=== PATIENT | male | born 1940 | race Caucasian/White ===

== ENCOUNTER → 2018-02-24 10:40 | Outpatient (CLI) | payer MEDICARE, SELFPAY | PROVIDERS: Family Provider Internal Medicine; PCP Internal Medicine; Visit Provider Urology | DX: R97.20 Elevated prostate specific antigen [PSA] (principal) | CPT/HCPCS: 36415; 84153 ==

== ENCOUNTER → 2019-04-06 11:55 | Outpatient (CLI) | payer MEDICARE, SELFPAY ==
[2019-04-06 13:03] LABS: Prostate Specific Antigen 2.08 ng/mL (0.10-4.00)
== END ==
PROVIDERS: PCP Internal Medicine; Visit Provider Urology
DX: R97.20 Elevated prostate specific antigen [PSA] (principal); N40.1 Benign prostatic hyperplasia with lower urinary tract symptoms
CPT/HCPCS: 36415; 84153

== ENCOUNTER → 2020-01-13 09:27 | Outpatient (CLI) | payer MEDICARE, SELFPAY ==
[2020-01-13 11:34] LABS: Aspartate Aminotransferase 27 IU/L (17-59); BUN Creatinine Ratio 16.7 (6-22); Blood Urea Nitrogen 14 mg/dL (9-20); Calcium 9.4 mg/dL (8.4-10.2); Carbon Dioxide 28 mmol/L (22-32); Chloride 106 mmol/L (98-107); Cholesterol 202 mg/dL (140-199); Estimated Glomerular Filt Rate > 60.0 mL/min (>60); Glucose 110 mg/dL (80-110); HDL Cholesterol 64 mg/dL (40-60); HEMOLYSIS < 15 (0-50); LDL Cholesterol Calculated 128 mg/dL (<100); Potassium 4.1 mmol/L (3.4-5.1); Sodium 140 mmol/L (137-145); Triglycerides 49 mg/dL (35-150)
== END ==
PROVIDERS: PCP Internal Medicine; Referring Provider Internal Medicine; Visit Provider Internal Medicine
DX: E78.2 Mixed hyperlipidemia (principal)
CPT/HCPCS: 36415; 80048; 80061; 84450

== ENCOUNTER → 2020-05-21 10:52 | Outpatient (CLI) | payer MEDICARE, SELFPAY ==
--- NOTE | 2020-05-21 | DI.RAD.S_ITS ---
PROCEDURE: XR LUMBAR SPINE 2-3V INDICATIONS: LOW BACK PAIN TECHNIQUE: 3 views of the lumbar spine were acquired. COMPARISON: None. FINDINGS: Bones: 5 [id number] vertebrae are present. There is normal bony alignment. No vertebral body compression fractures. No suspicious bony lesions. Multilevel disc space narrowing and endplate osteophyte formation. Facet hypertrophy throughout the mid and lower lumbar spine. Mild grade 1 anterolisthesis of L3 on L4. Soft tissues: Overlying bowel gas pattern is normal. No suspicious soft tissue calcifications. IMPRESSION: Multilevel degenerative disc and facet disease. No acute fracture. No osseous lesion. If symptoms and/or clinical suspicion for pathology persist, further assessment with repeat, or advanced imaging (e.g., CT, MRI, or bone scan) may be helpful for further assessment. Dictated by: Nesha Coe M.D. on 05/21/2020 at 16:55 Approved by: Nesha Coe M.D. on 05/21/2020 at 16:56
== END ==
PROVIDERS: PCP Internal Medicine; Referring Provider Internal Medicine; Visit Provider Internal Medicine
DX: M54.5 Low back pain (principal); M51.36 Other intervertebral disc degeneration, lumbar region
CPT/HCPCS: 72100

== ENCOUNTER → 2020-10-18 16:44 | Outpatient (CLI) | payer MEDICARE, SELFPAY ==
[2020-10-18] MEDS: COVID-19 VACC, Ad26(JANSSEN)/PF 0.5 ML IM (16:51)
== END ==
PROVIDERS: PCP Internal Medicine; Visit Provider Internal Medicine
DX: Z23 Encounter for immunization (principal)
CPT/HCPCS: 0031A; 91303

== ENCOUNTER → 2021-01-15 18:53 | Outpatient (ROUT) | payer OTHER, SELFPAY ==
[2021-01-15 19:13] LABS: Add Manual Diff / Slide Review NO; Basophils Absolute Auto 0 /uL (0-100); Basophils Percent Auto 0.7 % (0-2); Eosinophils Absolute Auto 200 /uL (0-450); Eosinophils Percent Auto 2.4 % (2-4); Hematocrit 40.8 % (41-53); Hemoglobin 13.5 g/dL (13.5-17.5); Lymphocytes Absolute Auto 800 /uL (1100-4500); Lymphocytes Percent Auto 10.8 % (25-40); Mean Corpuscular Hemoglobin 32.3 PG (26-34); Mean Corpuscular Volume 97.8 fL (80-100); Monocytes Absolute Auto 600 /uL (0-900); Neutrophils Absolute Auto 5500 /uL (1500-7000); Neutrophils Percent Auto 77.1 % (50-75); Platelet Count 232 X10^3/uL (150-400); Red Blood Cell Count 4.18 X10^6/uL (4.5-5.9); Red Cell Distribution Width 13.5 % (11.6-14.8); White Blood Cell Count 7.1 X10^3/uL (4.5-11.0)
[2021-01-15 19:20] LABS: Alanine Aminotransferase 17 IU/L (<50); Albumin Globulin Ratio 1.3 (1.0-2.8); Alkaline Phosphatase 93 U/L (38-126); Aspartate Aminotransferase 26 IU/L (17-59); BUN Creatinine Ratio 12.2 (6-22); Bilirubin Total 0.9 mg/dL (0.2-1.3); Blood Urea Nitrogen 10 mg/dL (9-20); Calcium 9.5 mg/dL (8.4-10.2); Carbon Dioxide 29 mmol/L (22-32); Chloride 104 mmol/L (98-107); Cholesterol 194 mg/dL (140-199); Estimated Glomerular Filt Rate > 60.0 mL/min (>60); Glucose 87 mg/dL (80-110); HDL Cholesterol 75 mg/dL (40-60); LDL Cholesterol Calculated 105 mg/dL (<100); Potassium 4.3 mmol/L (3.4-5.1); Sodium 140 mmol/L (137-145); Triglycerides 68 mg/dL (35-150)
[2021-01-15 19:51] LABS: TSH w/ Reflex to FT4 1.75 uIU/mL (0.47-4.68)
[2021-01-15 20:03] LABS: HEMOLYSIS < 15 (0-50); Prostate Specific Antigen 2.07 ng/mL (0.10-4.00)
== END ==
PROVIDERS: PCP Internal Medicine; Visit Provider Internal Medicine
DX: N40.0 Benign prostatic hyperplasia without lower urinary tract symptoms (principal); F10.20 Alcohol dependence, uncomplicated; E78.2 Mixed hyperlipidemia
CPT/HCPCS: 80053; 80061; 84153; 84443; 85025

== ENCOUNTER 2021-06-09 11:07 | Emergency (ER) | payer OTHER, SELFPAY ==
[2021-06-09 11:16] VITALS: BP 160/75; PULSE 76; RESP 16; TEMP 36.4; O2SAT 98; BMI 26.5
[2021-06-09 11:17] VITALS: PULSE 81; O2SAT 97
--- NOTE | 2021-06-09 11:23 | ED_ITS ---
HPI - Weakness General Chief complaint: Weakness Stated complaint: Feeling crummy/chills/sweats Time Seen by Provider: 06/09/21 11:10 Source: patient Mode of arrival: Ambulatory Related Data Home Medications Medication Instructions Recorded Confirmed ascorbic acid (vitamin C) 500 mg 1,000 mg PO BID #0 12/01/16 tablet aspirin 81 mg tablet,delayed 81 mg PO QDAY #0 12/01/16 release baclofen 10 mg tablet 20 mg PO QDAY #0 12/01/16 cholecalciferol (vitamin D3) 50 1 tab PO QDAY #0 12/01/16 mcg (2,000 unit) tablet (Vitamin D3) citalopram 20 mg tablet 10 mg PO QDAY #0 12/01/16 cyanocobalamin (vitamin B-12) 500 500 mcg PO QDAY #0 12/01/16 mcg tablet (Vitamin B-12) doxazosin 8 mg tablet (Cardura) 8 mg PO QDAY #0 12/01/16 finasteride 5 mg tablet 5 mg PO QDAY #0 12/01/16 multivitamin (Multiple Vitamins) 1 tab PO QDAY #0 12/01/16 pravastatin 20 mg tablet 20 mg PO HS #0 12/01/16 Allergies Allergy/AdvReac Type Severity Reaction Status Date / Time No Known Drug Allergies Allergy Verified 06/09/21 11:35 Patient History Social History Smoking Status: Never smoker Smoking Status: Never smoker alcohol intake frequency: 3 or more drinks per day Alcohol type: beer Substance Use Type: does not use Exam Initial Vital Signs Initial Vital Signs: Vital Signs Temperature 97.6 F 06/09/21 11:16 Pulse Rate 76 06/09/21 11:16 Respiratory Rate 16 06/09/21 11:16 Blood Pressure 160/75 H 06/09/21 11:16 Pulse Oximetry 98 06/09/21 11:16 Course Orders Ordered: ED Orders 06/09/21 11:10 COVID19 -Nasal swab/Pre-Proc Stat 06/09/21 11:30 Blood Culture Stat 06/09/21 11:31 EKG-12 Lead Stat 06/09/21 11:40 NT-proBNP (BNP-Adult 18+) Stat Troponin & CK Cardiac Panel Stat 06/09/21 11:45 Complete Blood Count AUTO DIFF Stat Comprehensive Metabolic Panel Stat Ethanol (ETOH) Stat Lactate (Lactic Acid) Stat Lipase Stat Magnesium Stat 06/09/21 12:23 XR chest 2V Stat 06/09/21 12:24 CT head/brain wo con Stat Discontinued Medications Sodium Chloride (Normal Saline 0.9%) 1,000 mls @ 1,000 mls/hr IV BOLUS ONE Stop: 06/09/21 12:29 Last Infusion: 06/09/21 13:13 Dose: 0 mls/hr Documented by: Admin: 06/09/21 11:45 Dose: 1,000 mls/hr Documented by: ALAINA Vital Signs Vital signs: Vital Signs - 8 hr 06/09/21 11:16 06/09/21 11:17 06/09/21 11:30 Temperature 97.6 F Pulse Rate 76 81 70 Respiratory Rate 16 Blood Pressure 160/75 H Pulse Oximetry 98 97 97 06/09/21 12:00 Temperature Pulse Rate 66 Respiratory Rate Blood Pressure 150/67 H Pulse Oximetry 95 MDM - Weakness Lab Data Result diagrams: 06/09/21 11:45 06/09/21 11:45 Labs: Lab Results 06/09/21 06/09/21 06/09/21 Range/Units 11:10 11:40 11:45 WBC 6.1 (4.5-11.0) X10^3/uL RBC 4.46 L (4.5-5.9) X10^6/uL Hgb 14.5 (13.5-17.5) g/dL Hct 43.3 (41-53) % MCV 97.0 (80-100) fL MCH 32.6 (26-34) PG MCHC 33.6 (30-36) % RDW 13.3 (11.6-14.8) % Plt Count 257 (150-400) X10^3/uL Neut % (Auto) 77.6 H (50-75) % Lymph % (Auto) 12.0 L (25-40) % Morrison % (Auto) 8.2 (3-14) % Eos % (Auto) 1.7 L (2-4) % Baso % (Auto) 0.5 (0-2) % Neut # (Auto) 4700 (6129-6140) /uL Lymph # (Auto) 700 L (8433-2288) /uL Morrison # (Auto) 500 (0-900) /uL Eos # (Auto) 100 (0-450) /uL Baso # (Auto) 0 (0-100) /uL Sodium (137-145) mmol/L Potassium (3.4-5.1) mmol/L Chloride (98-107) mmol/L Carbon Dioxide (22-32) mmol/L BUN (9-20) mg/dL Creatinine (0.66-1.25) mg/dL Estimated GFR (>60) mL/min BUN/Creatinine Ratio (6-22) Glucose (80-110) mg/dL Lactate (0.7-2.1) mmol/L Calcium (8.4-10.2) mg/dL Magnesium (1.6-2.3) mg/dL Total Bilirubin (0.2-1.3) mg/dL AST (17-59) IU/L ALT (<50) IU/L Alkaline Phosphatase (38-126) U/L Total Creatine Kinase 51 L (55-170) U/L CK-MB (CK-2) TNP CK-MB (CK-2) Rel Index TNP Troponin I < 0.012 (0.01-0.034) ng/mL NT-Pro-B Natriuret Pep 115 (<450) pg/mL Total Protein (6.3-8.2) g/dL Albumin (3.5-5.0) g/dL Globulin (1.7-4.1) g/dL Albumin/Globulin Ratio (1.0-2.8) Lipase (23-300) U/L Ethyl Alcohol ( - 10) mg/dL SARS-CoV-2 (PCR) Negative (Negative) 06/09/21 06/09/21 Range/Units 11:45 11:45 WBC (4.5-11.0) X10^3/uL RBC (4.5-5.9) X10^6/uL Hgb (13.5-17.5) g/dL Hct (41-53) % MCV (80-100) fL MCH (26-34) PG MCHC (30-36) % RDW (11.6-14.8) % Plt Count (150-400) X10^3/uL Neut % (Auto) (50-75) % Lymph % (Auto) (25-40) % Morrison % (Auto) (3-14) % Eos % (Auto) (2-4) % Baso % (Auto) (0-2) % Neut # (Auto) (2447-2035) /uL Lymph # (Auto) (8427-6114) /uL Morrison # (Auto) (0-900) /uL Eos # (Auto) (0-450) /uL Baso # (Auto) (0-100) /uL Sodium 140 (137-145) mmol/L Potassium 4.2 (3.4-5.1) mmol/L Chloride 103 (98-107) mmol/L Carbon Dioxide 31 (22-32) mmol/L BUN 11 (9-20) mg/dL Creatinine 0.99 (0.66-1.25) mg/dL Estimated GFR > 60.0 (>60) mL/min BUN/Creatinine Ratio 11.1 (6-22) Glucose 119 H (80-110) mg/dL Lactate 1.2 (0.7-2.1) mmol/L Calcium 9.3 (8.4-10.2) mg/dL Magnesium 2.4 H (1.6-2.3) mg/dL Total Bilirubin 1.0 (0.2-1.3) mg/dL AST 26 (17-59) IU/L ALT 19 (<50) IU/L Alkaline Phosphatase 97 (38-126) U/L Total Creatine Kinase (55-170) U/L CK-MB (CK-2) CK-MB (CK-2) Rel Index Troponin I (0.01-0.034) ng/mL NT-Pro-B Natriuret Pep (<450) pg/mL Total Protein 7.9 (6.3-8.2) g/dL Albumin 4.6 (3.5-5.0) g/dL Globulin 3.3 (1.7-4.1) g/dL Albumin/Globulin Ratio 1.4 (1.0-2.8) Lipase 50 (23-300) U/L Ethyl Alcohol < 10 ( - 10) mg/dL SARS-CoV-2 (PCR) (Negative) Urine Dip Bedside Urine Glucose Negative Bedside Urine Bilirubin - Negative Bedside Urine Ketone - Negative Urine Specific Harrell 1.015 Bedside Urine Occult Blood - Negative Bedside Urine pH 6.0 Bedside Urine Protein - Negative Bedside Urine Urobilinogen - Negative Bedside Urine Nitrite - Negative Bedside Urine Leukocytes - Negative Esterase Discharge Plan Departure Patient Disposition: Home Clinical Impression: Dehydration Instructions: DI for Dehydration -- Adult Activity Restrictions/Additional Instructions: You were evaluated in the ED today for weakness. Your lab results, CT head, chest x-ray were normal. Your symptoms are likely due to dehydration. Please continue to stay hydrated by drinking lots of water. Please see your primary care provider to follow up on the sleep issues. Return to the ED if you experience chest pain, shortness of breath, fever, chills. Prescriptions: No Action aspirin 81 MG tablet,delayed release (DR/EC) 81 mg PO QDAY Qty: 0 RF: 0 citalopram 20 MG tablet 10 mg PO QDAY Qty: 0 RF: 0 baclofen 10 MG tablet 20 mg PO QDAY Qty: 0 RF: 0 multivitamin [Multiple Vitamins] 1 EACH tablet 1 tab PO QDAY Qty: 0 RF: 0 doxazosin [Cardura] 8 MG tablet 8 mg PO QDAY Qty: 0 RF: 0 pravastatin 20 MG tablet 20 mg PO HS Qty: 0 RF: 0 finasteride 5 MG tablet 5 mg PO QDAY Qty: 0 RF: 0 cyanocobalamin (vitamin B-12) [Vitamin B-12] 500 MCG tablet 500 mcg PO QDAY Qty: 0 RF: 0 ascorbic acid (vitamin C) 500 MG tablet 1,000 mg PO BID Qty: 0 RF: 0 cholecalciferol (vitamin D3) [Vitamin D3] 2,000 UNIT tablet 1 tab PO QDAY Qty: 0 RF: 0 Referrals: Kristopher Altman MD [Primary Care Provider] -
[2021-06-09 11:30] VITALS: PULSE 70; O2SAT 97
[2021-06-09] MEDS: SODIUM CHLORIDE 0.9% 1,000 ML 1000 ML IV (11:45)
[2021-06-09 11:48] LABS: Add Manual Diff / Slide Review NO; Basophils Absolute Auto 0 /uL (0-100); Basophils Percent Auto 0.5 % (0-2); Eosinophils Absolute Auto 100 /uL (0-450); Eosinophils Percent Auto 1.7 % (2-4); Hematocrit 43.3 % (41-53); Hemoglobin 14.5 g/dL (13.5-17.5); Lymphocytes Absolute Auto 700 /uL (1100-4500); Mean Corpuscular HGB Conc 33.6 % (30-36); Mean Corpuscular Hemoglobin 32.6 PG (26-34); Monocytes Absolute Auto 500 /uL (0-900); Monocytes Percent Auto 8.2 % (3-14); Neutrophils Absolute Auto 4700 /uL (1500-7000); Neutrophils Percent Auto 77.6 % (50-75); Platelet Count 257 X10^3/uL (150-400); Red Blood Cell Count 4.46 X10^6/uL (4.5-5.9); Red Cell Distribution Width 13.3 % (11.6-14.8); White Blood Cell Count 6.1 X10^3/uL (4.5-11.0)
[2021-06-09 11:59] LABS: COVID19 -Nasal RAPID Negative (Negative)
[2021-06-09 11:59] LABS: Alanine Aminotransferase 19 IU/L (<50); Albumin 4.6 g/dL (3.5-5.0); Albumin Globulin Ratio 1.4 (1.0-2.8); Alkaline Phosphatase 97 U/L (38-126); Aspartate Aminotransferase 26 IU/L (17-59); BUN Creatinine Ratio 11.1 (6-22); Blood Urea Nitrogen 11 mg/dL (9-20); Calcium 9.3 mg/dL (8.4-10.2); Carbon Dioxide 31 mmol/L (22-32); Chloride 103 mmol/L (98-107); Estimated Glomerular Filt Rate > 60.0 mL/min (>60); Ethanol (ETOH) < 10 mg/dL; Globulin 3.3 g/dL (1.7-4.1); Glucose 119 mg/dL (80-110); HEMOLYSIS < 15 (0-50); Lipase 50 U/L (23-300); Magnesium 2.4 mg/dL (1.6-2.3); Potassium 4.2 mmol/L (3.4-5.1); Sodium 140 mmol/L (137-145); Total Protein 7.9 g/dL (6.3-8.2)
[2021-06-09 12:00] VITALS: BP 150/67; PULSE 66; O2SAT 95
[2021-06-09 12:00] LABS: Lactate (Lactic Acid) 1.2 mmol/L (0.7-2.1)
--- NOTE | 2021-06-09 12:08 | ED_ITS ---
HPI - Weakness <Corinne Shepherd PA-C - Last Filed: 06/09/21 13:16> General Chief complaint: Weakness Stated complaint: Feeling crummy/chills/sweats Time Seen by Provider: 06/09/21 11:10 Source: patient Mode of arrival: Ambulatory History of Present Illness HPI Narrative: 80-year-old male with no reported past medical history presents to the ED complaining of trouble sleeping, feeling generally unwell for the last 3 weeks. Patient states he has been taking melatonin with no relief. Patient states that he has not been eating very well or drinking enough water over the last 2-3 weeks. Patient states that the reason for this is that he is feeling lazy. Patient also endorses multiple falls over the last 3 weeks, the last of which was 2 weeks ago. Patient states that he has been feeling lightheaded just prior to falling. Patient endorses head strike. Patient denies loss of consciousness. Patient endorses that he has not been peeing as much, since he has not been drinking enough water, and endorses darker colored urine. Patient states he drinks 6-8 beers daily in the evenings, last drink was last night. Denies experiencing withdrawals in the past. Patient endorses some chills this morning. Patient denies fever, chest pain, shortness of breath, cough, nausea, vomiting, abdominal pain, dysuria, syncope. Patient has a cane for ambulation, but does not use it often. Related Data Home Medications Medication Instructions Recorded Confirmed ascorbic acid (vitamin C) 500 mg 1,000 mg PO BID #0 12/01/16 tablet aspirin 81 mg tablet,delayed 81 mg PO QDAY #0 12/01/16 release baclofen 10 mg tablet 20 mg PO QDAY #0 12/01/16 cholecalciferol (vitamin D3) 50 1 tab PO QDAY #0 12/01/16 mcg (2,000 unit) tablet (Vitamin D3) citalopram 20 mg tablet 10 mg PO QDAY #0 12/01/16 cyanocobalamin (vitamin B-12) 500 500 mcg PO QDAY #0 12/01/16 mcg tablet (Vitamin B-12) doxazosin 8 mg tablet (Cardura) 8 mg PO QDAY #0 12/01/16 finasteride 5 mg tablet 5 mg PO QDAY #0 12/01/16 multivitamin (Multiple Vitamins) 1 tab PO QDAY #0 12/01/16 pravastatin 20 mg tablet 20 mg PO HS #0 12/01/16 Allergies Allergy/AdvReac Type Severity Reaction Status Date / Time No Known Drug Allergies Allergy Verified 06/09/21 11:35 Review of Systems <Corinne Shepherd PA-C - Last Filed: 06/09/21 13:16> Constitutional Constitutional: Reports chills, Reports difficulty sleeping, Reports fatigue, Denies fever(s), Reports frequent falls, Reports lethargy and Denies weakness Eyes Eyes: Denies change in vision, Denies eye discharge, Denies irritation and Denies loss of vision ENT Ears, Nose, Mouth, and Throat: Denies change in voice, Denies dizziness, Denies neck pain, Denies sore throat and Denies throat swelling Cardiovascular Cardiovascular: Denies chest pain, Denies irregular heart rhythm, Denies lightheadedness, Denies palpitations, Denies dyspnea, Denies dyspnea on exertion and Denies orthopnea Respiratory Respiratory: Denies cough, Denies dyspnea, Denies dyspnea on exertion and Denies wheezing Gastrointestinal Gastrointestinal: Denies abdominal pain, Denies change in bowel habits, Denies diarrhea, Denies nausea and Denies vomiting Genitourinary Genitourinary: Reports oliguria Musculoskeletal Musculoskeletal: Denies neck pain and Denies numbness Integumentary/Breasts Skin/Breast: Denies pruritus, Denies erythema, Denies rash and Denies wounds Neurologic Neurologic: Denies behavioral changes, Denies confusion, Denies dizziness, Reports frequent falls, Denies loss of vision, Denies numbness and Denies weakness Psychiatric Psychiatric: Denies anxiety, Denies behavioral changes, Denies confusion, Denies depression, Denies homicidal ideation and Denies suicidal ideation Endocrine Endocrine: Reports fatigue, Denies flushing and Denies palpitations Hematologic/Lymphatic Hematologic/Lymphatic: Denies easy bruising Allergic/Immunologic Allergic/Immunologic: Denies urticaria, Denies throat swelling and Denies wheezing Patient History <Corinne Shepherd PA-C - Last Filed: 06/09/21 13:16> Social History Smoking Status: Never smoker Smoking Status: Never smoker alcohol intake frequency: 3 or more drinks per day Alcohol type: beer Substance Use Type: does not use Exam <Corinne Shepherd PA-C - Last Filed: 06/09/21 13:16> Initial Vital Signs Initial Vital Signs: Vital Signs Temperature 97.6 F 06/09/21 11:16 Pulse Rate 76 06/09/21 11:16 Respiratory Rate 16 06/09/21 11:16 Blood Pressure 160/75 H 06/09/21 11:16 Pulse Oximetry 98 06/09/21 11:16 Const General: cooperative HENMT Head: normocephalic and atraumatic Ears: external ears normal and TM's normal bilaterally Nose: external nose normal and No nasal discharge Face and sinus: sinuses nontender, face symmetric, no sinus tenderness and No dry mucous membranes Mouth: oral mucosae normal and moist mucous membranes Teeth and gingiva: dentition normal Throat: tonsils normal and uvula midline Eyes General: appearance normal, both eyes and all related structures Eyelids: eyelids normal Conjunctivae: conjunctivae normal Sclera: sclerae normal Pupils: PERRL EOM: EOM intact bilaterally Neck Neck: normal visual inspection, trachea midline, No lymphadenopathy, No midline deformity and No JVD Lymphatic: No lymphedema Chest Chest: normal inspection of the chest Resp Effort & Inspection: normal respiratory effort, able to speak in complete sentences, no respiratory distress and no use of accessory muscles Auscultation: clear to auscultation bilaterally, no rales, no rhonchi and no wheezes Cardio Rate: regular rate Rhythm: regular rhythm Heart Sounds: no click, no gallops, no murmurs and no rubs Pulses: normal peripheral pulses GI Inspection: non-distended Palpation: soft, no hepatosplenomegaly, No guarding, No pulsatile mass and No tender Auscultation: normal bowel sounds Back/Spine/Pelvis Back: No CVA tenderness Cervical Spine: cervical ROM normal and No pain with cervical ROM Thoracic/Lumbar Spine: thoracic and lumbar spine normal to inspection Skin General: no rashes or lesions noted, No jaundice and No petechiae Neuro General: patient alert, patient oriented x3, gait normal and no focal motor deficits Speech: speech normal Extrem General: full ROM, no clubbing, cyanosis or edema, no pedal edema and no calf tenderness Psych Appearance: well kempt Mental Status: mental status grossly normal Attitude: cooperative Thought Content: normal and suicidality Judgment: judgment good <Jeffrey Solares DO - Last Filed: 06/09/21 17:53> Initial Vital Signs Initial Vital Signs: Vital Signs Temperature 97.6 F 06/09/21 11:16 Pulse Rate 76 06/09/21 11:16 Respiratory Rate 16 06/09/21 11:16 Blood Pressure 160/75 H 06/09/21 11:16 Pulse Oximetry 98 06/09/21 11:16 Course <Corinne Shepherd PA-C - Last Filed: 06/09/21 13:16> Course Course Narrative: Labs, CT head, chest x-ray, EKG, UA with no acute findings. Patient feels better after you 1 L IVF bolus. Will discharge home with ED return precautions. Patient is following up with his PCP, has a appointment tomorrow with him, to follow-up on the sleep issues and frequent falls. Orders Ordered: ED Orders 06/09/21 11:10 COVID19 -Nasal swab/Pre-Proc Stat 06/09/21 11:30 Blood Culture Stat 06/09/21 11:31 EKG-12 Lead Stat 06/09/21 11:40 NT-proBNP (BNP-Adult 18+) Stat Troponin & CK Cardiac Panel Stat 06/09/21 11:45 Complete Blood Count AUTO DIFF Stat Comprehensive Metabolic Panel Stat Ethanol (ETOH) Stat Lactate (Lactic Acid) Stat Lipase Stat Magnesium Stat 06/09/21 12:23 XR chest 2V Stat 06/09/21 12:24 CT head/brain wo con Stat Discontinued Medications Sodium Chloride (Normal Saline 0.9%) 1,000 mls @ 1,000 mls/hr IV BOLUS ONE Stop: 06/09/21 12:29 Last Infusion: 06/09/21 13:13 Dose: 0 mls/hr Documented by: Admin: 06/09/21 11:45 Dose: 1,000 mls/hr Documented by: ALAINA Vital Signs Vital signs: Vital Signs - 8 hr 06/09/21 11:16 06/09/21 11:17 06/09/21 11:30 Temperature 97.6 F Pulse Rate 76 81 70 Respiratory Rate 16 Blood Pressure 160/75 H Pulse Oximetry 98 97 97 06/09/21 12:00 Temperature Pulse Rate 66 Respiratory Rate Blood Pressure 150/67 H Pulse Oximetry 95 <Jeffrey Solares DO - Last Filed: 06/09/21 17:53> Orders Ordered: ED Orders 06/09/21 11:10 COVID19 -Nasal swab/Pre-Proc Stat 06/09/21 11:30 Blood Culture Stat 06/09/21 11:31 EKG-12 Lead Stat 06/09/21 11:40 NT-proBNP (BNP-Adult 18+) Stat Troponin & CK Cardiac Panel Stat 06/09/21 11:45 Complete Blood Count AUTO DIFF Stat Comprehensive Metabolic Panel Stat Ethanol (ETOH) Stat Lactate (Lactic Acid) Stat Lipase Stat Magnesium Stat 06/09/21 12:23 XR chest 2V Stat 06/09/21 12:24 CT head/brain wo con Stat Discontinued Medications Sodium Chloride (Normal Saline 0.9%) 1,000 mls @ 1,000 mls/hr IV BOLUS ONE Stop: 06/09/21 12:29 Last Infusion: 06/09/21 13:13 Dose: 0 mls/hr Documented by: Admin: 06/09/21 11:45 Dose: 1,000 mls/hr Documented by: ALAINA Vital Signs Vital signs: Vital Signs - 8 hr 06/09/21 11:16 06/09/21 11:17 06/09/21 11:30 Temperature 97.6 F Pulse Rate 76 81 70 Respiratory Rate 16 Blood Pressure 160/75 H Pulse Oximetry 98 97 97 06/09/21 12:00 Temperature Pulse Rate 66 Respiratory Rate Blood Pressure 150/67 H Pulse Oximetry 95 MDM - Weakness <Corinne Shepherd PA-C - Last Filed: 06/09/21 13:16> Lab Data Lab results narrative: Labs within normal limits, UA negative Result diagrams: 06/09/21 11:45 06/09/21 11:45 Labs: Lab Results 06/09/21 06/09/21 06/09/21 Range/Units 11:10 11:40 11:45 WBC 6.1 (4.5-11.0) X10^3/uL RBC 4.46 L (4.5-5.9) X10^6/uL Hgb 14.5 (13.5-17.5) g/dL Hct 43.3 (41-53) % MCV 97.0 (80-100) fL MCH 32.6 (26-34) PG MCHC 33.6 (30-36) % RDW 13.3 (11.6-14.8) % Plt Count 257 (150-400) X10^3/uL Neut % (Auto) 77.6 H (50-75) % Lymph % (Auto) 12.0 L (25-40) % [place] % (Auto) 8.2 (3-14) % Eos % (Auto) 1.7 L (2-4) % Baso % (Auto) 0.5 (0-2) % Neut # (Auto) 4700 (7293-9996) /uL Lymph # (Auto) 700 L (0194-9877) /uL [place] # (Auto) 500 (0-900) /uL Eos # (Auto) 100 (0-450) /uL Baso # (Auto) 0 (0-100) /uL Sodium (137-145) mmol/L Potassium (3.4-5.1) mmol/L Chloride (98-107) mmol/L Carbon Dioxide (22-32) mmol/L BUN (9-20) mg/dL Creatinine (0.66-1.25) mg/dL Estimated GFR (>60) mL/min BUN/Creatinine Ratio (6-22) Glucose (80-110) mg/dL Lactate (0.7-2.1) mmol/L Calcium (8.4-10.2) mg/dL Magnesium (1.6-2.3) mg/dL Total Bilirubin (0.2-1.3) mg/dL AST (17-59) IU/L ALT (<50) IU/L Alkaline Phosphatase (38-126) U/L Total Creatine Kinase 51 L (55-170) U/L CK-MB (CK-2) TNP CK-MB (CK-2) Rel Index TNP Troponin I < 0.012 (0.01-0.034) ng/mL NT-Pro-B Natriuret Pep 115 (<450) pg/mL Total Protein (6.3-8.2) g/dL Albumin (3.5-5.0) g/dL Globulin (1.7-4.1) g/dL Albumin/Globulin Ratio (1.0-2.8) Lipase (23-300) U/L Ethyl Alcohol ( - 10) mg/dL SARS-CoV-2 (PCR) Negative (Negative) 06/09/21 06/09/21 Range/Units 11:45 11:45 WBC (4.5-11.0) X10^3/uL RBC (4.5-5.9) X10^6/uL Hgb (13.5-17.5) g/dL Hct (41-53) % MCV (80-100) fL MCH (26-34) PG MCHC (30-36) % RDW (11.6-14.8) % Plt Count (150-400) X10^3/uL Neut % (Auto) (50-75) % Lymph % (Auto) (25-40) % [place] % (Auto) (3-14) % Eos % (Auto) (2-4) % Baso % (Auto) (0-2) % Neut # (Auto) (7763-3756) /uL Lymph # (Auto) (5593-8313) /uL [place] # (Auto) (0-900) /uL Eos # (Auto) (0-450) /uL Baso # (Auto) (0-100) /uL Sodium 140 (137-145) mmol/L Potassium 4.2 (3.4-5.1) mmol/L Chloride 103 (98-107) mmol/L Carbon Dioxide 31 (22-32) mmol/L BUN 11 (9-20) mg/dL Creatinine 0.99 (0.66-1.25) mg/dL Estimated GFR > 60.0 (>60) mL/min BUN/Creatinine Ratio 11.1 (6-22) Glucose 119 H (80-110) mg/dL Lactate 1.2 (0.7-2.1) mmol/L Calcium 9.3 (8.4-10.2) mg/dL Magnesium 2.4 H (1.6-2.3) mg/dL Total Bilirubin 1.0 (0.2-1.3) mg/dL AST 26 (17-59) IU/L ALT 19 (<50) IU/L Alkaline Phosphatase 97 (38-126) U/L Total Creatine Kinase (55-170) U/L CK-MB (CK-2) CK-MB (CK-2) Rel Index Troponin I (0.01-0.034) ng/mL NT-Pro-B Natriuret Pep (<450) pg/mL Total Protein 7.9 (6.3-8.2) g/dL Albumin 4.6 (3.5-5.0) g/dL Globulin 3.3 (1.7-4.1) g/dL Albumin/Globulin Ratio 1.4 (1.0-2.8) Lipase 50 (23-300) U/L Ethyl Alcohol < 10 ( - 10) mg/dL SARS-CoV-2 (PCR) (Negative) Urine Dip Bedside Urine Glucose Negative Bedside Urine Bilirubin - Negative Bedside Urine Ketone - Negative Urine Specific [place] 1.015 Bedside Urine Occult Blood - Negative Bedside Urine pH 6.0 Bedside Urine Protein - Negative Bedside Urine Urobilinogen - Negative Bedside Urine Nitrite - Negative Bedside Urine Leukocytes - Negative Esterase Imaging Data Chest x-ray: Radiologist Impression: PROCEDURE:? XR CHEST 2V ? INDICATIONS:? Falls, weakness ? TECHNIQUE:? 2 views of the chest were acquired.? ? COMPARISON:? None. ? FINDINGS:? ? Surgical changes and devices:? None.? ? Lungs and pleura:? Lungs are clear.? No pleural effusions or pneumothorax.? ? Mediastinum:? Mediastinal contours are normal.? Heart size is normal.? ? Bones and chest wall:? No suspicious bony abnormalities.? Soft tissues appear unremarkable.? ? IMPRESSION:? No acute cardiopulmonary disease.? ? ? Dictated by: Jada Sales M.D. on 06/09/2021 at 12:59 ? ? Approved by: Jada Sales M.D. on 06/09/2021 at 12:59 ? CT scan - head: Radiologist Impression: PROCEDURE:? CT HEAD/BRAIN WO CON ? INDICATIONS:? Falls, weakness ? TECHNIQUE:? Noncontrast 4.5 mm thick angled axial sections acquired from the foramen magnum to the vertex, with coronal and sagittal reformats.? For radiation dose reduction, the following was used:? automated exposure control, adjustment of mA and/or kV according to patient size.? ? COMPARISON:? None. ? FINDINGS:? Image quality:? Excellent.? ? CSF spaces:? Basal cisterns are patent.? No extra-axial fluid collections.? The ventricles are symmetric in size and shape.? ? Brain:? No intracranial bleeds or masses.? There is cerebral volume loss for age, with resultant ventricular and sulcal prominence.? Bilateral hypoattenuating areas are seen in the external capsule regions (i.e. Series 2, image 13), which may reflect prominent perivascular spaces versus lacunar infarcts.? Periventricular and deep white matter chronic small vessel ischemic changes.? ? Skull and face:? Calvarium and visualized facial bones appear intact, without suspicious lesions.? Small soft tissue density focus in the right frontal scalp, likely reflecting contusion. ? Sinuses:? Visualized sinuses and mastoids are clear.? ? IMPRESSION:? No acute intracranial abnormality. ? ? Dictated by: Santhosh Lopez M.D. on 06/09/2021 at 12:38 ? ? Approved by: Santhosh Lopez M.D. on 06/09/2021 at 12:42 ? ECG Data Interpretation: Normal sinus rhythm, no ST-T changes MDM Narrative Medical decision making narrative: 80-year-old male with no reported past medical history presents to the ED complaining of trouble sleeping, feeling generally unwell for the last 3 weeks. Concern for syncope versus dehydration versus ACS versus infection. Will order labs, chest x-ray, EKG, troponin, l actate, BNP, CT head, COVID swab, UA. Will give IV fluids. Will reassess. <Jeffrey Solares, DO - Last Filed: 06/09/21 17:53> Lab Data Labs: Lab Results 06/09/21 06/09/21 06/09/21 Range/Units 11:10 11:40 11:45 WBC 6.1 (4.5-11.0) X10^3/uL RBC 4.46 L (4.5-5.9) X10^6/uL Hgb 14.5 (13.5-17.5) g/dL Hct 43.3 (41-53) % MCV 97.0 (80-100) fL MCH 32.6 (26-34) PG MCHC 33.6 (30-36) % RDW 13.3 (11.6-14.8) % Plt Count 257 (150-400) X10^3/uL Neut % (Auto) 77.6 H (50-75) % Lymph % (Auto) 12.0 L (25-40) % [place] % (Auto) 8.2 (3-14) % Eos % (Auto) 1.7 L (2-4) % Baso % (Auto) 0.5 (0-2) % Neut # (Auto) 4700 (0175-3345) /uL Lymph # (Auto) 700 L (3253-2454) /uL [place] # (Auto) 500 (0-900) /uL Eos # (Auto) 100 (0-450) /uL Baso # (Auto) 0 (0-100) /uL Sodium (137-145) mmol/L Potassium (3.4-5.1) mmol/L Chloride (98-107) mmol/L Carbon Dioxide (22-32) mmol/L BUN (9-20) mg/dL Creatinine (0.66-1.25) mg/dL Estimated GFR (>60) mL/min BUN/Creatinine Ratio (6-22) Glucose (80-110) mg/dL Lactate (0.7-2.1) mmol/L Calcium (8.4-10.2) mg/dL Magnesium (1.6-2.3) mg/dL Total Bilirubin (0.2-1.3) mg/dL AST (17-59) IU/L ALT (<50) IU/L Alkaline Phosphatase (38-126) U/L Total Creatine Kinase 51 L (55-170) U/L CK-MB (CK-2) TNP CK-MB (CK-2) Rel Index TNP Troponin I < 0.012 (0.01-0.034) ng/mL NT-Pro-B Natriuret Pep 115 (<450) pg/mL Total Protein (6.3-8.2) g/dL Albumin (3.5-5.0) g/dL Globulin (1.7-4.1) g/dL Albumin/Globulin Ratio (1.0-2.8) Lipase (23-300) U/L Ethyl Alcohol ( - 10) mg/dL SARS-CoV-2 (PCR) Negative (Negative) 06/09/21 06/09/21 Range/Units 11:45 11:45 WBC (4.5-11.0) X10^3/uL RBC (4.5-5.9) X10^6/uL Hgb (13.5-17.5) g/dL Hct (41-53) % MCV (80-100) fL MCH (26-34) PG MCHC (30-36) % RDW (11.6-14.8) % Plt Count (150-400) X10^3/uL Neut % (Auto) (50-75) % Lymph % (Auto) (25-40) % [place] % (Auto) (3-14) % Eos % (Auto) (2-4) % Baso % (Auto) (0-2) % Neut # (Auto) (5920-7830) /uL Lymph # (Auto) (0445-2965) /uL [place] # (Auto) (0-900) /uL Eos # (Auto) (0-450) /uL Baso # (Auto) (0-100) /uL Sodium 140 (137-145) mmol/L Potassium 4.2 (3.4-5.1) mmol/L Chloride 103 (98-107) mmol/L Carbon Dioxide 31 (22-32) mmol/L BUN 11 (9-20) mg/dL Creatinine 0.99 (0.66-1.25) mg/dL Estimated GFR > 60.0 (>60) mL/min BUN/Creatinine Ratio 11.1 (6-22) Glucose 119 H (80-110) mg/dL Lactate 1.2 (0.7-2.1) mmol/L Calcium 9.3 (8.4-10.2) mg/dL Magnesium 2.4 H (1.6-2.3) mg/dL Total Bilirubin 1.0 (0.2-1.3) mg/dL AST 26 (17-59) IU/L ALT 19 (<50) IU/L Alkaline Phosphatase 97 (38-126) U/L Total Creatine Kinase (55-170) U/L CK-MB (CK-2) CK-MB (CK-2) Rel Index Troponin I (0.01-0.034) ng/mL NT-Pro-B Natriuret Pep (<450) pg/mL Total Protein 7.9 (6.3-8.2) g/dL Albumin 4.6 (3.5-5.0) g/dL Globulin 3.3 (1.7-4.1) g/dL Albumin/Globulin Ratio 1.4 (1.0-2.8) Lipase 50 (23-300) U/L Ethyl Alcohol < 10 ( - 10) mg/dL SARS-CoV-2 (PCR) (Negative) Urine Dip Bedside Urine Glucose Negative Bedside Urine Bilirubin - Negative Bedside Urine Ketone - Negative Urine Specific [place] 1.015 Bedside Urine Occult Blood - Negative Bedside Urine pH 6.0 Bedside Urine Protein - Negative Bedside Urine Urobilinogen - Negative Bedside Urine Nitrite - Negative Bedside Urine Leukocytes - Negative Esterase Discharge Plan Departure Patient Disposition: Home Clinical Impression: Dehydration Instructions: DI for Dehydration -- Adult Activity Restrictions/Additional Instructions: You were evaluated in the ED today for weakness. Your lab results, CT head, chest x-ray were normal. Your symptoms are likely due to dehydration. Please continue to stay hydrated by drinking lots of water. Please see your primary care provider to follow up on the sleep issues. Return to the ED if you experience chest pain, shortness of breath, fever, chills. Prescriptions: No Action aspirin 81 MG tablet,delayed release (DR/EC) 81 mg PO QDAY Qty: 0 RF: 0 citalopram 20 MG tablet 10 mg PO QDAY Qty: 0 RF: 0 baclofen 10 MG tablet 20 mg PO QDAY Qty: 0 RF: 0 multivitamin [Multiple Vitamins] 1 EACH tablet 1 tab PO QDAY Qty: 0 RF: 0 doxazosin [Cardura] 8 MG tablet 8 mg PO QDAY Qty: 0 RF: 0 pravastatin 20 MG tablet 20 mg PO HS Qty: 0 RF: 0 finasteride 5 MG tablet 5 mg PO QDAY Qty: 0 RF: 0 cyanocobalamin (vitamin B-12) [Vitamin B-12] 500 MCG tablet 500 mcg PO QDAY Qty: 0 RF: 0 ascorbic acid (vitamin C) 500 MG tablet 1,000 mg PO BID Qty: 0 RF: 0 cholecalciferol (vitamin D3) [Vitamin D3] 2,000 UNIT tablet 1 tab PO QDAY Qty: 0 RF: 0 Referrals: Kristopher Altman MD [Primary Care Provider] - <Jeffrey Solares DO - Last Filed: 06/09/21 17:53> Cosign ED Attending Cosignature Attestation: I was immediately available in the department for consultation. This documentation has been reviewed and I agree with assessment and plan. Supervised by Jeffrey Solares DO
--- NOTE | 2021-06-09 12:23 | DI.RAD.S_ITS ---
PROCEDURE: XR CHEST 2V INDICATIONS: Falls, weakness TECHNIQUE: 2 views of the chest were acquired. COMPARISON: None. FINDINGS: Surgical changes and devices: None. Lungs and pleura: Lungs are clear. No pleural effusions or pneumothorax. Mediastinum: Mediastinal contours are normal. Heart size is normal. Bones and chest wall: No suspicious bony abnormalities. Soft tissues appear unremarkable. IMPRESSION: No acute cardiopulmonary disease. Dictated by: Jada Sales M.D. on 06/09/2021 at 12:59 Approved by: Jada Sales M.D. on 06/09/2021 at 12:59
--- NOTE | 2021-06-09 12:24 | DI.CT.S_ITS ---
PROCEDURE: CT HEAD/BRAIN WO CON INDICATIONS: Falls, weakness TECHNIQUE: Noncontrast 4.5 mm thick angled axial sections acquired from the foramen magnum to the vertex, with coronal and sagittal reformats. For radiation dose reduction, the following was used: automated exposure control, adjustment of mA and/or kV according to patient size. COMPARISON: None. FINDINGS: Image quality: Excellent. CSF spaces: Basal cisterns are patent. No extra-axial fluid collections. The ventricles are symmetric in size and shape. Brain: No intracranial bleeds or masses. There is cerebral volume loss for age, with resultant ventricular and sulcal prominence. Bilateral hypoattenuating areas are seen in the external capsule regions (i.e. Series 2, image 13), which may reflect prominent perivascular spaces versus lacunar infarcts. Periventricular and deep white matter chronic small vessel ischemic changes. Skull and face: Calvarium and visualized facial bones appear intact, without suspicious lesions. Small soft tissue density focus in the right frontal scalp, likely reflecting contusion. Sinuses: Visualized sinuses and mastoids are clear. IMPRESSION: No acute intracranial abnormality. Dictated by: Santhosh Lopez M.D. on 06/09/2021 at 12:38 Approved by: Santhosh Lopez M.D. on 06/09/2021 at 12:42
[2021-06-09 12:43] LABS: Creatine Kinase 51 U/L (55-170)
[2021-06-09 12:56] LABS: NT-proBNP (BNP-Adult 18+) 115 pg/mL (<450); Troponin I < 0.012 ng/mL (0.01-0.034)
== END 2021-06-09 13:13 | disposition home or self-care (01) ==
PROVIDERS: Emergency Medicine; Emergency Provider Student in an Organized Health Care Education/Training Program; PCP Internal Medicine
DX: E86.0 Dehydration (principal); R42 Dizziness and giddiness; R29.6 Repeated falls; R53.83 Other fatigue; Z20.822 Contact with and (suspected) exposure to COVID-19
CPT/HCPCS: 36415; 70450; 71046; 80053; 80320; 81003; 82550; 83605; 83690; 83735; 83880; 84484; 85025; 87635; 93005; 96360; 99284; C9803

== ENCOUNTER → 2022-03-20 15:12 | Outpatient (CLI) | payer OTHER, SELFPAY ==
--- NOTE | 2022-03-20 | DI.RAD.S_ITS ---
PROCEDURE: XR LUMBAR SPINE 2-3V INDICATIONS: lumbago with sciatica, right side TECHNIQUE: 3 views of the lumbar spine were acquired. COMPARISON: [facility], , XR LUMBAR SPINE 2-3V, 05/21/2020, 10:48. FINDINGS: Bones: 5 [id number] vertebrae are present. Minimal left convexity curvature centered at L2-L3. No substantial listhesis visualized.. No vertebral body compression fractures. No suspicious bony lesions. Moderate multilevel degenerative changes with disc height loss and endplate spurring and facet arthropathy present as before. Soft tissues: Overlying bowel gas pattern is normal. No suspicious soft tissue calcifications. IMPRESSION: 1. No acute lumbar spine fracture visualized radiographically. 2. Multilevel degenerative changes of the lumbar spine as before. Dictated by: Rocael Heredia M.D. on 03/20/2022 at 17:28 Approved by: Rocael Heredia M.D. on 03/20/2022 at 17:32
== END ==
PROVIDERS: PCP Student in an Organized Health Care Education/Training Program; Referring Provider Student in an Organized Health Care Education/Training Program; Visit Provider Student in an Organized Health Care Education/Training Program
DX: M47.816 Spondylosis without myelopathy or radiculopathy, lumbar region (principal); M54.41 Lumbago with sciatica, right side; G89.29 Other chronic pain
CPT/HCPCS: 72100

== ENCOUNTER 2022-05-01 17:31 | Emergency (ER) | payer OTHER, SELFPAY ==
[2022-05-01 17:48] VITALS: BP 160/74; PULSE 77; RESP 18; TEMP 36.6; O2SAT 97; BMI 27.8
--- NOTE | 2022-05-01 18:29 | ED.HEATRA ---
HPI - Head Injury General Chief complaint: Head Injury Stated complaint: Fell hit head/laceration upper lt. eye Time Seen by Provider: 05/01/22 17:50 Source: patient Mode of arrival: Ambulatory History of Present Illness HPI Narrative: Patient is an 81-year-old male with history of hyperlipidemia on aspirin presents as a mechanical ground level fall. He said he was walking when he suddenly fell to the ground. [place] was on even he felt the left side. No loss of consciousness no nausea vomiting no numbness tingling or weakness. He has a laceration above the left eye. He has some small abrasions to the left hand no neck pain or other injuries. Related Data Home Medications Medication Instructions Recorded Confirmed ascorbic acid (vitamin C) 500 mg 1,000 mg PO BID ##0 12/01/16 tablet aspirin 81 mg tablet,delayed 81 mg PO QDAY ##0 12/01/16 release baclofen 10 mg tablet 20 mg PO QDAY ##0 12/01/16 cholecalciferol (vitamin D3) 50 1 tab PO QDAY ##0 12/01/16 mcg (2,000 unit) tablet (Vitamin D3) citalopram 20 mg tablet 10 mg PO QDAY ##0 12/01/16 cyanocobalamin (vitamin B-12) 500 500 mcg PO QDAY ##0 12/01/16 mcg tablet (Vitamin B-12) doxazosin 8 mg tablet (Cardura) 8 mg PO QDAY ##0 12/01/16 finasteride 5 mg tablet 5 mg PO QDAY ##0 12/01/16 multivitamin (Multiple Vitamins 1 tab PO QDAY ##0 12/01/16 tablet) pravastatin 20 mg tablet 20 mg PO HS ##0 12/01/16 Allergies Allergy/AdvReac Type Severity Reaction Status Date / Time No Known Drug Allergies Allergy Verified 05/01/22 17:52 Review of Systems Review of Systems Narrative: GENERAL: Denies chills, fatigue, malaise, fever, sweats, travel HEENT: Denies sinus pain, ear pain, sore throat, difficulty swallowing, neck pain RESPIRATORY: Denies dyspnea, cough, wheezing, hemoptysis, sputum. CARDIOVASCULAR: Denies chest pain, palpitations, orthopnea, edema GASTROINTESTINAL: Denies nausea, vomiting, abdominal pain, diarrhea, constipation, melena. : Denies dysuria, frequency, incontinence, hematuria, urinary retention, flank pain. MUSCULOSKELETAL: Denies weakness, joint pain, or bony pain SKIN: See HPI NEUROLOGIC: Denies weakness, dizziness, headache, numbness, change in speech, confusion PSYCHIATRIC: No concerning psychosocial issues. 12 point review of systems is negative except for those stated above and HPI Patient History Social History Smoking Status: Never smoker Smoking Status: Never smoker alcohol intake frequency: 3 or more drinks per day Alcohol type: beer Substance Use Type: does not use Exam Initial Vital Signs Initial Vital Signs: Vital Signs Temperature 97.9 F 05/01/22 17:48 Pulse Rate 77 05/01/22 17:48 Respiratory Rate 18 05/01/22 17:48 Blood Pressure 160/74 H 05/01/22 17:48 Pulse Oximetry 97 05/01/22 17:48 Oxygen Delivery Method 05/01/22 17:48 GENERAL: Alert pleasant 81-year-old male HEENT: Head abrasions and laceration on left side just above eyebrow, EOMI NECK: Supple no vertebral tenderness CARDIOVASCULAR: Regular rate and rhythm without murmurs, rubs or gallops. RESPIRATORY: Breath sounds equal bilaterally, no wheezes rales or rhonchi. ABDOMEN: Soft, nontender. Normoactive bowel sounds all 4 quadrants. No guarding or rebound. EXTREMITIES: Normal range of motion, no clubbing or edema. Neurovascularly intact. Pelvis stable NEUROLOGICAL: Alert and oriented x4 talent development specialist strength equal bilaterally SKIN: Warm, dry, no laceration, no petechiae, no rashes or lesions. Procedures Laceration Repair Laceration 1: Side (If applicable): left Size (cm): 2 Description: linear Depth: simple, single layer Local Anesthetic: lidocaine 1% and with epi Amount of anesthesia used (mL): 2 Pre-repair: wound explored, irrigated extensively and deep structures intact Skin layer closed with: nylon Skin layer suture size: 4-0 Number of sutures: 2 Technique: simple, interrupted Course Orders Ordered: ED Orders 05/01/22 18:35 CT cervical spine wo con Stat CT head/brain wo con Stat 05/01/22 19:13 Consult to WHEEL ALIGNMENT TECHNICIAN - Greenhouse Technician Stat Vital Signs Vital signs: Vital Signs - 8 hr 05/01/22 17:48 05/01/22 18:54 05/01/22 18:54 Temperature 97.9 F Pulse Rate 77 75 Respiratory Rate 18 Blood Pressure 160/74 H 152/70 H Pulse Oximetry 97 96 Oxygen Delivery Method Room Air 05/01/22 19:00 05/01/22 19:00 Temperature Pulse Rate 72 Respiratory Rate Blood Pressure 150/72 H Pulse Oximetry 96 Oxygen Delivery Method MDM - Head Injury Imaging Data CT scan - head: Radiologist's Impression: CT Scan Report Signed Patient: Veronica Pepe MR#: [id number] : 1940 Acct:[id number] Age/Sex: 81 / M Date of Service: 05/01/22 Loc: ED Accession Number: [id number] ?? Procedure: CT head/brain wo con Ordering Provider: Carolyn Montalvo D.O. PROCEDURE:? CT HEAD/BRAIN WO CON ? INDICATIONS:? fall left laceration ? TECHNIQUE:? Noncontrast 4.5 mm thick angled axial sections acquired from the foramen magnum to the vertex, with coronal and sagittal reformats.? For radiation dose reduction, the following was used:? automated exposure control, adjustment of mA and/or kV according to patient size.? ? COMPARISON:? [facility], CT, CT HEAD/BRAIN WO CON, 06/09/2021, 12:33. ? FINDINGS:? Image quality:? Excellent.? ? CSF spaces:? Basal cisterns are patent.? No extra-axial fluid collections.? Ventricles are normal in size and shape.? Moderate volume loss. ? Brain:? No midline shift.? No intracranial masses or hemorrhage.? Seth-white matter interface is normal.? Suspected chronic small vessel disease, similar to prior.? 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 ? Skull and face:? Calvarium and visualized facial bones are intact, without suspicious lesions.? ? Sinuses:? Visualized sinuses and mastoids are clear.? ? IMPRESSION:? No acute intracranial abnormality.? Chronic findings as above ? ? Dictated by: Meño Villaseñor M.D. on 05/01/2022 at 19:53 ? ? CT - cervical spine: Radiologist's Impression: [address] [address] [address] Scan Report Signed Patient: Veronica Pepe MR#: [id number] : 1940 Acct:[id number] Age/Sex: 81 / M Date of Service: 05/01/22 Loc: ED Accession Number: [id number] ?? Procedure: CT cervical spine wo con Ordering Provider: Carolyn Montalvo D.O. PROCEDURE:? CT CERVICAL SPINE WO CON ? INDICATIONS:? fall ? TECHNIQUE:? Noncontrast 3 mm thick sections acquired from the skull base to the T4 level.? Sagittal and coronal reformats were then constructed.? For radiation dose reduction, the following was used:? automated exposure control, adjustment of mA and/or kV according to patient size.? ? COMPARISON:? None. ? FINDINGS:? Image quality:? Excellent.? ? Bones:? Advanced spondylotic changes, limiting evaluation for an acute fracture.? 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 No spondylolisthesis.? ? Soft tissues:? Prevertebral soft tissues are normal in thickness.? No paravertebral hematomas.? No apical pneumothoraces.? ? ? IMPRESSION:? Advanced spondylotic changes, limiting evaluation.? No definite acute fracture or traumatic subluxation of the cervical spine. ? 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 No definite acute features.? Correlate with location of pain and symptoms. ? Dictated by: Meño Villaseñor M.D. on 05/01/2022 at 19:02 ? ? MDM Narrative Medical decision making narrative: Patient is walking around the emergency department quite antsy to leave. I have sutured his laceration above his left eye. Head CT and C-spine CT are negative. Nursing staff called the son he states that he does like to drink alcohol all. At this time he is clinically sober. Discharge Plan Departure Patient Disposition: Home Clinical Impression: Fall, Laceration Instructions: DI for Laceration Repair Activity Restrictions/Additional Instructions: *You have been diagnosed with laceration and fall *What to do: Have sutures removed in 5-7 days. Keep clean and dry with soap and water. No swimming. *Continue to take medications as directed Antibiotic ointment 1 to 2 times a day *Follow up with your primary care provider in 2-3 days or call [phone] *Return to ER if you should have increasing pain vomiting redness swelling drain or any new, worsening or concerning symptoms Prescriptions: No Action aspirin 81 MG tablet,delayed release (DR/EC) 81 mg PO QDAY Qty: 0 citalopram 20 MG tablet 10 mg PO QDAY Qty: 0 baclofen 10 MG tablet 20 mg PO QDAY Qty: 0 multivitamin [Multiple Vitamins] 1 EACH tablet 1 tab PO QDAY Qty: 0 doxazosin [Cardura] 8 MG tablet 8 mg PO QDAY Qty: 0 pravastatin 20 MG tablet 20 mg PO HS Qty: 0 finasteride 5 MG tablet 5 mg PO QDAY Qty: 0 cyanocobalamin (vitamin B-12) [Vitamin B-12] 500 MCG tablet 500 mcg PO QDAY Qty: 0 ascorbic acid (vitamin C) 500 MG tablet 1,000 mg PO BID Qty: 0 cholecalciferol (vitamin D3) [Vitamin D3] 2,000 UNIT tablet 1 tab PO QDAY Qty: 0 Referrals: Suzanne Lanier PA-C [Primary Care Provider] - Visit Report Forms: Patient Portal/API
--- NOTE | 2022-05-01 18:35 | DI.CT.S_ITS ---
PROCEDURE: CT CERVICAL SPINE WO CON INDICATIONS: fall TECHNIQUE: Noncontrast 3 mm thick sections acquired from the skull base to the T4 level. Sagittal and coronal reformats were then constructed. For radiation dose reduction, the following was used: automated exposure control, adjustment of mA and/or kV according to patient size. COMPARISON: None. FINDINGS: Image quality: Excellent. Bones: Advanced spondylotic changes, limiting evaluation for an acute fracture. 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 No spondylolisthesis. Soft tissues: Prevertebral soft tissues are normal in thickness. No paravertebral hematomas. No apical pneumothoraces. IMPRESSION: Advanced spondylotic changes, limiting evaluation. No definite acute fracture or traumatic subluxation of the cervical spine. 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 No definite acute features. Correlate with location of pain and symptoms. Dictated by: Meño Villaseñor M.D. on 05/01/2022 at 19:02 Approved by: Meño Villaseñor M.D. on 05/01/2022 at 19:06
--- NOTE | 2022-05-01 18:35 | DI.CT.S_ITS ---
PROCEDURE: CT HEAD/BRAIN WO CON INDICATIONS: fall left laceration TECHNIQUE: Noncontrast 4.5 mm thick angled axial sections acquired from the foramen magnum to the vertex, with coronal and sagittal reformats. For radiation dose reduction, the following was used: automated exposure control, adjustment of mA and/or kV according to patient size. COMPARISON: [facility], CT, CT HEAD/BRAIN WO CON, 06/09/2021, 12:33. FINDINGS: Image quality: Excellent. CSF spaces: Basal cisterns are patent. No extra-axial fluid collections. Ventricles are normal in size and shape. Moderate volume loss. Brain: No midline shift. No intracranial masses or hemorrhage. Seth-white matter interface is normal. Suspected chronic small vessel disease, similar to prior. 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 Skull and face: Calvarium and visualized facial bones are intact, without suspicious lesions. Sinuses: Visualized sinuses and mastoids are clear. IMPRESSION: No acute intracranial abnormality. Chronic findings as above Dictated by: Meño Villaseñor M.D. on 05/01/2022 at 19:53 Approved by: Meño Villaseñor M.D. on 05/01/2022 at 19:55
[2022-05-01 18:54] VITALS: BP 152/70; PULSE 75; O2SAT 96
[2022-05-01 19:00] VITALS: BP 150/72; PULSE 72; O2SAT 96
--- NOTE | 2022-05-01 19:13 | PC.NURSE ---
radha waller, son, POA, would like to speak with ERRAND RUNNER about options for his father since his dementia is getting worse and he keeps falling. [phone].
--- NOTE | 2022-05-05 17:50 | CM.SWNOTE ---
DIRECTOR OF COUNSELING f/u Note DIRECTOR OF COUNSELING calls patient's son for f/u call per RN. Son reports he is DPOA and lives with patient half of the year. Son reports concern for patient's Dementia and recent fall and states he has fallen 4-5 times in the last year. DIRECTOR OF COUNSELING discusses resources and son reports patient cannot afford private pay SNF or LONG-TERM and would not qualify for Medicaid due to owning his home. DIRECTOR OF COUNSELING informs patient's son about HH services if that becomes a need for patient. At this time patient conducts ADLs, drives and walks with cane and does not meet criteria for service. Patient has upcoming PCP appt with Dr. Altman on 08/31/21, DIRECTOR OF COUNSELING encourages son to f/u with PCP after appt or attend appt with patient. Ailin Merino,DUPLICATOR PUNCH OPERATOR
== END 2022-05-01 20:04 | disposition home or self-care (01) ==
PROVIDERS: Emergency Provider Emergency Medicine; PCP Student in an Organized Health Care Education/Training Program
DX: S01.112A Laceration without foreign body of left eyelid and periocular area, initial encounter (principal); W19.XXXA Unspecified fall, initial encounter
CPT/HCPCS: 70450; 72125; 99283

== ENCOUNTER 2022-05-08 11:11 | Emergency (ER) | payer OTHER, SELFPAY ==
[2022-05-08 11:18] VITALS: BP 143/74; PULSE 74; RESP 16; TEMP 36.4; O2SAT 98
--- NOTE | 2022-05-08 11:30 | ED.RECABL ---
HPI - Recheck/Abnormal Lab/Rx General Chief Complaint: Recheck/Abnormal Lab/Rx Stated Complaint: needs to have stitches removed Time Seen by Provider: 05/08/22 11:30 Source: patient Mode of arrival: Family Vehicle History of Present Illness HPI narrative: Patient here for removal of 2 stitches on the left eyebrow. Patient denies any fever or discharge from the wound. No dehiscence. Related Data Home Medications Medication Instructions Recorded Confirmed ascorbic acid (vitamin C) 500 mg 1,000 mg PO BID ##0 12/01/16 tablet aspirin 81 mg tablet,delayed 81 mg PO QDAY ##0 12/01/16 release baclofen 10 mg tablet 20 mg PO QDAY ##0 12/01/16 cholecalciferol (vitamin D3) 50 1 tab PO QDAY ##0 12/01/16 mcg (2,000 unit) tablet (Vitamin D3) citalopram 20 mg tablet 10 mg PO QDAY ##0 12/01/16 cyanocobalamin (vitamin B-12) 500 500 mcg PO QDAY ##0 12/01/16 mcg tablet (Vitamin B-12) doxazosin 8 mg tablet (Cardura) 8 mg PO QDAY ##0 12/01/16 finasteride 5 mg tablet 5 mg PO QDAY ##0 12/01/16 multivitamin (Multiple Vitamins 1 tab PO QDAY ##0 12/01/16 tablet) pravastatin 20 mg tablet 20 mg PO HS ##0 12/01/16 Allergies Allergy/AdvReac Type Severity Reaction Status Date / Time No Known Drug Allergies Allergy Verified 05/08/22 11:19 Review of Systems Review of Systems Narrative: GENERAL: Denies chills, fatigue, malaise, fever, sweats. HEENT: Denies sinus pain, ear pain, sore throat RESPIRATORY: Denies dyspnea, cough CARDIOVASCULAR: Denies chest pain, palpitations GASTROINTESTINAL: Denies nausea, vomiting, abdominal pain : Denies dysuria, frequency, hematuria MUSCULOSKELETAL: denies muscle or bony pain SKIN: Denies rash, skin lesions NEUROLOGIC: Denies weakness, numbness ROS Unobtainable: All systems reviewed & are unremarkable except as noted in HPI and below Patient History Social History Smoking Status: Never smoker Smoking Status: Never smoker alcohol intake frequency: 3 or more drinks per day Alcohol type: beer Substance Use Type: does not use Exam Narrative Exam Narrative: GENERAL: in no distress, not toxic not dyspneic HEAD: Normocephalic. EYES: Pupils equal round No scleral icterus. Left lateral eyebrow, wound is clean dry and intact. To visible stitches are intact. No oozing no erythema nontender. NEURO: AOx4. SKIN: Warm and dry PSYCH: Not anxious, is cooperative Initial Vital Signs Initial Vital Signs: Vital Signs Temperature 97.6 F 05/08/22 11:18 Pulse Rate 74 05/08/22 11:18 Respiratory Rate 16 05/08/22 11:18 Blood Pressure 143/74 H 05/08/22 11:18 Pulse Oximetry 98 05/08/22 11:18 Oxygen Delivery Method 05/08/22 11:18 Course Reevaluation(s) Reevaluation #1: Patient tolerated removal of 2 stitches without difficulty Time: 11:33 Vital Signs Vital signs: Vital Signs - 8 hr 05/08/22 11:18 Temperature 97.6 F Pulse Rate 74 Respiratory Rate 16 Blood Pressure 143/74 H Pulse Oximetry 98 Oxygen Delivery Method Room Air MDM - Recheck/Abnormal Lab/Rx Differential Diagnosis Differential diagnosis: Likely encounter for removal of sutures MDM Narrative Medical decision making narrative: Appropriate for discharge home. Wound very well healed. Appropriate for removal of 2 stitches. I did review previous chart and 2 stitches were placed. No bleeding or oozing after removal of stitches Discharge Plan Departure Patient Disposition: Home Clinical Impression: Encounter for removal of sutures Instructions: DI for Suture Removal Activity Restrictions/Additional Instructions: Keep your wound out of contact of the sun. This will cause further scarring. Return if worse if any questions or concerns. Prescriptions: No Action aspirin 81 MG tablet,delayed release (DR/EC) 81 mg PO QDAY Qty: 0 citalopram 20 MG tablet 10 mg PO QDAY Qty: 0 baclofen 10 MG tablet 20 mg PO QDAY Qty: 0 multivitamin [Multiple Vitamins] 1 EACH tablet 1 tab PO QDAY Qty: 0 doxazosin [Cardura] 8 MG tablet 8 mg PO QDAY Qty: 0 pravastatin 20 MG tablet 20 mg PO HS Qty: 0 finasteride 5 MG tablet 5 mg PO QDAY Qty: 0 cyanocobalamin (vitamin B-12) [Vitamin B-12] 500 MCG tablet 500 mcg PO QDAY Qty: 0 ascorbic acid (vitamin C) 500 MG tablet 1,000 mg PO BID Qty: 0 cholecalciferol (vitamin D3) [Vitamin D3] 2,000 UNIT tablet 1 tab PO QDAY Qty: 0 Referrals: Suzanne Lanier PA-C [Primary Care Provider] - Visit Report Forms: Patient Portal/API
== END 2022-05-08 11:35 | disposition home or self-care (01) ==
PROVIDERS: Emergency Provider Emergency Medicine; PCP Student in an Organized Health Care Education/Training Program
DX: Z48.02 Encounter for removal of sutures (principal)
CPT/HCPCS: 99281

== ENCOUNTER → 2022-05-13 11:51 | Outpatient (CLI) | payer OTHER, SELFPAY ==
--- NOTE | 2022-05-13 12:28 | DI.MRI.S_ITS ---
PROCEDURE: MR LUMBAR SPINE WO CON INDICATIONS: Spinal stenosis, lumbar region TECHNIQUE: Noncontrast sagittal T1 spin echo and T2 fast echo, sagittal STIR, and T2 fast spin echo through the lumbar spine. In cases with scoliosis, additional coronal T2 fast spin echo may be performed. COMPARISON: [facility], CR, XR LUMBAR SPINE 2-3V, 03/20/2022, 15:40. FINDINGS: Image quality: Excellent. Alignment and Curvature: There is normal bony alignment. Bone Marrow: There is a large bridging osteophyte associated with L3-4 as well as Schmorl's node involving the inferior endplate of the L3. Both are associated with marrow edema in the L3 vertebral body. Interbody fusion noted L4-5 Spinal Cord: Conus medullaris terminates at the L1 level. Visualized cord demonstrates normal signal and size. Paraspinous Soft Tissues: No paravertebral masses. T12-L1: Normal appearance. L1-L2: Disc height is maintained. Asymmetric right disc bulge results in mild central stenosis. Mild right and no left foraminal stenosis L2-L3: Disc height is preserved. No central stenosis no foraminal stenosis L3-L4: Disc height is preserved. Circumferential disc bulge and hypertrophic facet joints results in moderate central stenosis. No foraminal stenosis L4-L5: There is fusion or ankylosis of the disc space. Hypertrophic facet joints present. Mild central and no foraminal stenosis. No instrumentation. L5-S1: Disc space is preserved. Mild disc bulge. Moderate bilateral foraminal stenosis IMPRESSION: 1. L3 vertebral body marrow edema associated with edema in a large anterior bridging osteophyte at L3-4 as well as inferior endplate Schmorl's node. Edema probable sequela of recent trauma. Although the disc is preserved, follow-up 3-4 month MR with contrast recommended to evaluate for developing osteomyelitis Approved by: Jose Antonio Pereira M.D. on 05/13/2022 at 14:26
== END ==
PROVIDERS: PCP Student in an Organized Health Care Education/Training Program; Referring Provider Orthopaedic Surgery Orthopaedic Surgery of the Spine; Visit Provider Orthopaedic Surgery Orthopaedic Surgery of the Spine
DX: M48.061 Spinal stenosis, lumbar region without neurogenic claudication (principal); M51.46 Schmorl's nodes, lumbar region
CPT/HCPCS: 72148

== ENCOUNTER → 2022-08-12 13:19 | Outpatient (CLI) | payer OTHER, SELFPAY ==
--- NOTE | 2022-08-12 | DI.RAD.S_ITS ---
PROCEDURE: XR LUMBAR SPINE 2-3V INDICATIONS: chronic right-sided low back pain with right-sided sciatica TECHNIQUE: 3 views of the lumbar spine were acquired. COMPARISON: [facility], CR, XR LUMBAR SPINE 2-3V, 03/20/2022, 15:40. [facility], CR, XR LUMBAR SPINE 2-3V, 05/21/2020, 10:48. FINDINGS: Bones: 5 [id number] vertebrae are present. There is normal bony alignment. Bridging anterior vertebral body osteophytes. Loss of disc space height at L4-L5 and L5-S1. No vertebral body compression fractures. No suspicious bony lesions. Soft tissues: Overlying bowel gas pattern is normal. No suspicious soft tissue calcifications. IMPRESSION: No significant change appreciated. Moderate degenerative change in DDD. Bridging anterior vertebral body osteophytes. Dictated by: Dorian Nuñez M.D. on 08/12/2022 at 15:27 Approved by: Dorian Nuñez M.D. on 08/12/2022 at 15:50
== END ==
PROVIDERS: PCP Student in an Organized Health Care Education/Training Program; Referring Provider Student in an Organized Health Care Education/Training Program; Visit Provider Student in an Organized Health Care Education/Training Program
DX: M51.16 Intervertebral disc disorders with radiculopathy, lumbar region; G89.29 Other chronic pain
CPT/HCPCS: 72100

== ENCOUNTER → 2022-09-22 12:21 | Outpatient (CLI) | payer OTHER, SELFPAY ==
[2022-09-22 12:56] LABS: Hematocrit 41.8 % (41-53); Mean Corpuscular HGB Conc 33.6 % (30-36); Mean Corpuscular Hemoglobin 32.3 PG (26-34); Mean Corpuscular Volume 96.3 fL (80-100); Platelet Count 269 X10^3/uL (150-400); Red Blood Cell Count 4.35 X10^6/uL (4.5-5.9); Red Cell Distribution Width 13.5 % (11.6-14.8); White Blood Cell Count 6.1 X10^3/uL (4.5-11.0)
[2022-09-22 13:07] LABS: Alanine Aminotransferase 26 IU/L (<50); Albumin 4.4 g/dL (3.5-5.0); Albumin Globulin Ratio 1.3 (1.0-2.8); Alkaline Phosphatase 114 U/L (38-126); Aspartate Aminotransferase 32 IU/L (17-59); BUN Creatinine Ratio 14.1 (6-22); Bilirubin Total 1.2 mg/dL (0.2-1.3); Blood Urea Nitrogen 14 mg/dL (9-20); Calcium 8.9 mg/dL (8.4-10.2); Carbon Dioxide 29 mmol/L (22-32); Chloride 103 mmol/L (98-107); Cholesterol 225 mg/dL (140-199); Estimated Glomerular Filt Rate > 60 mL/min (>60); Globulin 3.4 g/dL (1.7-4.1); Glucose 100 mg/dL (80-110); HDL Cholesterol 83 mg/dL (40-60); HEMOLYSIS < 15 (0-50); LDL Cholesterol Calculated 127 mg/dL (<100); Potassium 4.4 mmol/L (3.4-5.1); Sodium 140 mmol/L (137-145); Total Protein 7.8 g/dL (6.3-8.2); Triglycerides 75 mg/dL (35-150)
[2022-09-22 13:35] LABS: Prostate Specific Antigen 2.31 ng/mL (0.10-4.00)
[2022-09-22 13:41] LABS: TSH w/ Reflex to FT4 1.33 uIU/mL (0.47-4.68)
[2022-09-22 14:50] LABS: Vitamin B12 611 pg/mL (239-931)
== END ==
PROVIDERS: PCP Internal Medicine; Referring Provider Internal Medicine; Visit Provider Internal Medicine
DX: E53.8 Deficiency of other specified B group vitamins (principal); E78.2 Mixed hyperlipidemia; N40.1 Benign prostatic hyperplasia with lower urinary tract symptoms; N13.8 Other obstructive and reflux uropathy
CPT/HCPCS: 36415; 80053; 80061; 82607; 84153; 84443; 85027

== ENCOUNTER 2022-11-02 16:20 | Emergency (ER) | payer OTHER, SELFPAY ==
[2022-11-02 16:24] VITALS: BP 127/60; PULSE 74; RESP 18; TEMP 36.6; O2SAT 97; BMI 27.2
--- NOTE | 2022-11-02 16:42 | DI.CT.S_ITS ---
PROCEDURE: CT HEAD/BRAIN WO CON INDICATIONS: multiple falls with head injury TECHNIQUE: Noncontrast 4.5 mm thick angled axial sections acquired from the foramen magnum to the vertex, with coronal and sagittal reformats. For radiation dose reduction, the following was used: automated exposure control, adjustment of mA and/or kV according to patient size. COMPARISON: [facility], CT, CT HEAD/BRAIN WO CON, 05/01/2022, 18:52. FINDINGS: Image quality: Excellent. CSF spaces: Basal cisterns are patent. No extra-axial fluid collections. Ventricles are normal in size and shape. Brain: No midline shift. No intracranial masses or hemorrhage. Age-related volume loss and moderate small vessel ischemic change. Skull and face: Calvarium and visualized facial bones are intact, without suspicious lesions. Left maxillary sinus mucosal thickening. Other paranasal sinuses and mastoids are clear. Sinuses: Visualized sinuses and mastoids are clear. IMPRESSION: 1. Age-related volume loss and moderate small vessel ischemic change. 2. No evidence acute intracranial process. 3. Chronic left maxillary sinus disease. Dictated by: Gamaliel Peña M.D. on 11/02/2022 at 17:04 Approved by: Gamaliel Peña M.D. on 11/02/2022 at 17:07
--- NOTE | 2022-11-02 17:09 | DI.RAD.S_ITS ---
PROCEDURE: XR SHOULDER LT MIN 2V INDICATIONS: Fall with pain on palpation to extremity TECHNIQUE: 3 views of the shoulder were acquired. COMPARISON: [facility], CR, XR HUMERUS LT 2V, 11/02/2022, 17:20. [facility], CT, CT HEAD/BRAIN WO CON, 11/02/2022, 16:55. FINDINGS: Bones: Focal remote appearing irregularity can be seen involving the left humeral neck. Additional remote irregularity can be seen involving the left humeral shaft. Generalized degenerative changes are seen, with subacromial spurring. The visualized ribs appear intact. Soft tissues: No suspicious soft tissue calcifications. The visualized lung demonstrates an unremarkable appearance. IMPRESSION: Remote appearing fractures are seen, without an acute fracture identified on these plain films. If there is point tenderness (or other clinical suspicion for a fracture not seen on these images) then a dedicated CT could be considered for further evaluation, if clinically appropriate. Dictated by: Rodríguez Otoole M.D. on 11/02/2022 at 17:21 Approved by: Rodríguez Otoole M.D. on 11/02/2022 at 17:25
--- NOTE | 2022-11-02 17:09 | DI.RAD.S_ITS ---
PROCEDURE: XR HUMERUS LT 2V INDICATIONS: Fall with pain on palpation to extremity TECHNIQUE: 2 views of the humerus were acquired. COMPARISON: [facility], CT, CT HEAD/BRAIN WO CON, 11/02/2022, 16:55. [facility], CR, XR SHOULDER LT MIN 2V, 11/02/2022, 17:20. FINDINGS: Bones: No acute appearing fractures or dislocations. There is a remote, healed right humeral shaft fracture. No suspicious bony lesions. Age-appropriate bony degenerative changes are seen. Soft tissues: No suspicious soft tissue calcifications. IMPRESSION: No definite displaced fractures are seen on these plain films. Dictated by: Rodríguez Otoole M.D. on 11/02/2022 at 17:20 Approved by: Rodríguez Otoole M.D. on 11/02/2022 at 17:21
[2022-11-02 17:29] LABS: Add Manual Diff / Slide Review NO; Basophils Absolute Auto 0 /uL (0-100); Basophils Percent Auto 0.2 % (0-2); Eosinophils Absolute Auto 0 /uL (0-450); Eosinophils Percent Auto 0.1 % (2-4); Hematocrit 42.5 % (41-53); Lymphocytes Absolute Auto 700 /uL (1100-4500); Lymphocytes Percent Auto 4.1 % (25-40); Mean Corpuscular Hemoglobin 31.5 PG (26-34); Mean Corpuscular Volume 95.7 fL (80-100); Monocytes Absolute Auto 800 /uL (0-900); Neutrophils Absolute Auto 14700 /uL (1500-7000); Neutrophils Percent Auto 90.6 % (50-75); Platelet Count 267 X10^3/uL (150-400); Red Blood Cell Count 4.44 X10^6/uL (4.5-5.9); Red Cell Distribution Width 13.6 % (11.6-14.8); White Blood Cell Count 16.2 X10^3/uL (4.5-11.0)
[2022-11-02 17:36] LABS: INR 1.1 (0.9-1.3)
[2022-11-02 17:39] LABS: PTT Partial Thromboplastin Tim 30 SECONDS (26-36)
[2022-11-02 17:43] LABS: Alanine Aminotransferase 24 IU/L (<50); Albumin 4.2 g/dL (3.5-5.0); Albumin Globulin Ratio 1.2 (1.0-2.8); Alkaline Phosphatase 126 U/L (38-126); Aspartate Aminotransferase 27 IU/L (17-59); BUN Creatinine Ratio 9.6 (6-22); Bilirubin Total 0.8 mg/dL (0.2-1.3); Blood Urea Nitrogen 10 mg/dL (9-20); Calcium 9.2 mg/dL (8.4-10.2); Carbon Dioxide 31 mmol/L (22-32); Chloride 106 mmol/L (98-107); Creatine Kinase 100 U/L (55-170); Estimated Glomerular Filt Rate > 60 mL/min (>60); Globulin 3.5 g/dL (1.7-4.1); Glucose 111 mg/dL (80-110); HEMOLYSIS < 15 (0-50); Lipase 47 U/L (23-300); Magnesium 2.2 mg/dL (1.6-2.3); Potassium 3.8 mmol/L (3.4-5.1); Sodium 140 mmol/L (137-145); Total Protein 7.7 g/dL (6.3-8.2)
[2022-11-02 17:54] LABS: Troponin I < 0.012 ng/mL (0.01-0.034)
--- NOTE | 2022-11-02 18:32 | ED.FALL ---
HPI - Fall General Chief Complaint: Fall Stated Complaint: Fell laceration to forehead/rt. eye Time Seen by Provider: 11/02/22 17:52 Source: patient Mode of arrival: Wheelchair Limitations: no limitations History of Present Illness HPI Narrative: Patient is an 82-year-old male. Not on anticoagulation who is here for evaluation of injuries that he sustained when he stated that he lost his balance and fell forward hitting his head on the ground. He also injured his left arm and his left shoulder. He states he just lost his balance. He actually fell several times today. He states that each of them were in similar circumstances where he just lost his balance and fell when he was bending over. He is no neck pain. He reports no other injuries from the event. No vision problems. No lower extremity or pelvic discomfort. Related Data Home Medications Medication Instructions Recorded Confirmed ascorbic acid (vitamin C) 500 mg 1,000 mg PO BID ##0 12/01/16 10/01/22 tablet aspirin 81 mg tablet,delayed 81 mg PO QDAY ##0 12/01/16 10/01/22 release baclofen 10 mg tablet 20 mg PO QDAY ##0 12/01/16 10/01/22 cholecalciferol (vitamin D3) 50 1 tab PO QDAY ##0 12/01/16 10/01/22 mcg (2,000 unit) tablet (Vitamin D3) cyanocobalamin (vitamin B-12) 500 500 mcg PO QDAY ##0 12/01/16 10/01/22 mcg tablet (Vitamin B-12) doxazosin 8 mg tablet (Cardura) 8 mg PO QDAY ##0 12/01/16 10/01/22 finasteride 5 mg tablet 5 mg PO QDAY ##0 12/01/16 10/01/22 multivitamin (Multiple Vitamins 1 tab PO QDAY ##0 12/01/16 10/01/22 tablet) pravastatin 20 mg tablet 20 mg PO HS ##0 12/01/16 10/01/22 donepezil 10 mg tablet 10 mg PO DAILY 10/01/22 10/01/22 venlafaxine 150 mg 150 mg PO DAILY 10/01/22 10/01/22 capsule,extended release 24 hr Previous Rx's Medication Instructions Recorded quetiapine 50 mg tablet 50 mg PO BID #180 tabs 10/01/22 Allergies Allergy/AdvReac Type Severity Reaction Status Date / Time No Known Drug Allergies Allergy Verified 11/02/22 16:28 Review of Systems Constitutional Constitutional: Reports system reviewed and no additional complaints, except as documented Eyes Eyes: Reports system reviewed and no additional complaints, except as documented ENT Ears, Nose, Mouth, and Throat: Reports system reviewed and no additional complaints, except as documented Integumentary/Breasts Skin/Breast: Reports system reviewed and no additional complaints, except as documented Neurologic Neurologic: Reports system reviewed and no additional complaints, except as documented Hematologic/Lymphatic On Anticoagulants: No Patient History Medical History Alcohol use disorder B12 deficiency BPH w urinary obs/LUTS Chronic low back pain Dementia Depression, major, recurrent Gait instability Mixed hyperlipidemia Overweight Recurrent falls Social History details: 2018 ([place] Elena), son Humphrey, retired heating and ventilation engineer. Smoking Status: Former smoker Smoking Status: Former smoker alcohol intake frequency: 3 or more drinks per day Alcohol type: beer Substance Use Type: does not use Exam Initial Vital Signs Initial Vital Signs: Vital Signs Temperature 97.8 F 11/02/22 16:24 Pulse Rate 74 11/02/22 16:24 Respiratory Rate 18 11/02/22 16:24 Blood Pressure 127/60 11/02/22 16:24 Pulse Oximetry 97 11/02/22 16:24 Oxygen Delivery Method Room Air 11/02/22 16:24 Const General: cooperative HENFL Head: abrasion, contusion and No hematoma Eyes EOM: EOM intact bilaterally Chest Chest: No crepitus and No tenderness Resp Effort & Inspection: normal respiratory effort Auscultation: clear to auscultation bilaterally Cardio Rate: regular rate Rhythm: regular rhythm GI Inspection: normal to inspection and non-distended Skin Other: Patient has multiple skin abrasions over the bridge of his nose and on his forehead above his right eye. There is 1 area that is not full thickness through the skin. No active bleeding. Neuro General: patient alert, patient awake and moves all extremities Extrem Other: Patient has full range of motion of his left shoulder and left elbow. Some tenderness to palpation over the area. His right upper extremity pelvis and bilateral lower extremities are unremarkable. Scores GCS Steven coma scale eye opening: Spontaneous Steven coma scale verbal response: Orientated [place] coma scale motor response: Obey commands Steven coma scale total score: 15 Course Orders Ordered: Discontinued Medications Bacitracin (Bacitracin Oint 0.9 Gm Pckt) 3 applic TOP NOW ONE Stop: 11/02/22 18:52 Last Admin: 11/02/22 19:11 Dose: 3 applic Documented By: EVA Vital Signs Vital signs: Vital Signs - 8 hr 11/02/22 16:24 Temperature 97.8 F Pulse Rate 74 Respiratory Rate 18 Blood Pressure 127/60 Pulse Oximetry 97 Oxygen Delivery Method Room Air MDM - Fall Lab Data Attestation: I reviewed the patient's lab results. 11/02/22 17:05 11/02/22 17:05 Labs: Lab Results 11/02/22 11/02/22 11/02/22 Range/Units 17:05 17:05 17:05 WBC 16.2 H (4.5-11.0) X10^3/uL RBC 4.44 L (4.5-5.9) X10^6/uL Hgb 14.0 (13.5-17.5) g/dL Hct 42.5 (41-53) % MCV 95.7 (80-100) fL MCH 31.5 (26-34) PG MCHC 33.0 (30-36) % RDW 13.6 (11.6-14.8) % Plt Count 267 (150-400) X10^3/uL Neut % (Auto) 90.6 H (50-75) % Lymph % (Auto) 4.1 L (25-40) % Pershing % (Auto) 5.0 (3-14) % Eos % (Auto) 0.1 L (2-4) % Baso % (Auto) 0.2 (0-2) % Neut # (Auto) 83206 H (8494-5577) /uL Lymph # (Auto) 700 L (5337-3583) /uL Pershing # (Auto) 800 (0-900) /uL Eos # (Auto) 0 (0-450) /uL Baso # (Auto) 0 (0-100) /uL PT 13.0 H (10.1-12.7) SECONDS INR 1.1 (0.9-1.3) APTT 30 (26-36) SECONDS Sodium 140 (137-145) mmol/L Potassium 3.8 (3.4-5.1) mmol/L Chloride 106 (98-107) mmol/L Carbon Dioxide 31 (22-32) mmol/L BUN 10 (9-20) mg/dL Creatinine 1.04 (0.66-1.25) mg/dL Estimated GFR > 60 (>60) mL/min BUN/Creatinine Ratio 9.6 (6-22) Glucose 111 H (80-110) mg/dL Calcium 9.2 (8.4-10.2) mg/dL Magnesium 2.2 (1.6-2.3) mg/dL Total Bilirubin 0.8 (0.2-1.3) mg/dL AST 27 (17-59) IU/L ALT 24 (<50) IU/L Alkaline Phosphatase 126 (38-126) U/L Total Creatine Kinase 100 (55-170) U/L CK-MB (CK-2) TNP CK-MB (CK-2) Rel Index TNP Troponin I < 0.012 (0.01-0.034) ng/mL Total Protein 7.7 (6.3-8.2) g/dL Albumin 4.2 (3.5-5.0) g/dL Globulin 3.5 (1.7-4.1) g/dL Albumin/Globulin Ratio 1.2 (1.0-2.8) Lipase 47 (23-300) U/L Imaging Data CT scan - head: Radiologist's Impression: PROCEDURE:? CT HEAD/BRAIN WO CON ? INDICATIONS:? multiple falls with head injury ? TECHNIQUE:? Noncontrast 4.5 mm thick angled axial sections acquired from the foramen magnum to the vertex, with coronal and sagittal reformats.? For radiation dose reduction, the following was used:? automated exposure control, adjustment of mA and/or kV according to patient size.? ? COMPARISON:? [facility], CT, CT HEAD/BRAIN WO CON, 05/01/2022, 18:52. ? FINDINGS:? Image quality:? Excellent.? ? CSF spaces:? Basal cisterns are patent.? No extra-axial fluid collections.? Ventricles are normal in size and shape.? ? Brain:? No midline shift.? No intracranial masses or hemorrhage.? Age-related volume loss and moderate small vessel ischemic change. ? Skull and face:? Calvarium and visualized facial bones are intact, without suspicious lesions.? Left maxillary sinus mucosal thickening.? Other paranasal sinuses and mastoids are clear. ? Sinuses:? Visualized sinuses and mastoids are clear.? ? IMPRESSION:? ? 1. Age-related volume loss and moderate small vessel ischemic change. ? 2. No evidence acute intracranial process. ? 3. Chronic left maxillary sinus disease.? Extremity x-ray #1: Radiologist's Impression: PROCEDURE:? XR HUMERUS LT 2V ? INDICATIONS:? Fall with pain on palpation to extremity ? TECHNIQUE:? 2 views of the humerus were acquired.? ? COMPARISON:? [facility], CT, CT HEAD/BRAIN WO CON, 11/02/2022, 16:55.? [facility], CR, XR SHOULDER LT MIN 2V, 11/02/2022, 17:20. ? FINDINGS:? ? Bones:? No acute appearing fractures or dislocations.? There is a remote, healed right humeral shaft fracture.? No suspicious bony lesions.? Age-appropriate bony degenerative changes are seen.? ? Soft tissues:? No suspicious soft tissue calcifications.? IMPRESSION:? No definite displaced fractures are seen on these plain films. Extremity x-ray #2: Radiologist's Impression: PROCEDURE:? XR SHOULDER LT MIN 2V ? INDICATIONS:? Fall with pain on palpation to extremity ? TECHNIQUE:? 3 views of the shoulder were acquired.? ? COMPARISON:? [facility], CR, XR HUMERUS LT 2V, 11/02/2022, 17:20.? [facility], CT, CT HEAD/BRAIN WO CON, 11/02/2022, 16:55. ? FINDINGS:? ? Bones:? Focal remote appearing irregularity can be seen involving the left humeral neck.? Additional remote irregularity can be seen involving the left humeral shaft. ? Generalized degenerative changes are seen, with subacromial spurring.? The visualized ribs appear intact.? ? Soft tissues:? No suspicious soft tissue calcifications.? The visualized lung demonstrates an unremarkable appearance. ? ? IMPRESSION:? Remote appearing fractures are seen, without an acute fracture identified on these plain films. ? If there is point tenderness (or other clinical suspicion for a fracture not seen on these images) then a dedicated CT could be considered for further evaluation, if clinically appropria ECG Data Attestation: I personally reviewed and interpreted this ECG as follows: Interpretation: Sinus rhythm Ventricular rate is 71 Occasional PVC Normal QRS Normal QTC No ST T wave changes MDM Narrative Medical decision making narrative: Patient's head CT and left arm x-rays are unremarkable. He is multiple abrasions on his forehead and also on his right hand. There is 1 area of his forehead that is deeper than an abrasion but is not full-thickness. This was covered with Steri-Strips. The other abrasions only need cleaned and topical antibiotic ointment. This does appear to be a mechanical fall. Neck was cleared by nexus criteria. He reports no other injuries from the event. Will discharge patient home with care instructions. He expressed understanding and agreement. He did ambulate to the bathroom without difficulty with his walker. Discharge Plan Departure Patient Disposition: Home Clinical Impression: Abrasion of skin, Arm pain, left Instructions: How to Prevent Falls Activity Restrictions/Additional Instructions: The skin abrasions can be covered with antibiotic ointment. You can shower like normal. Continue to take all of your medications as directed. Return to the emergency department for any new or worsening symptoms. Prescriptions: No Action aspirin 81 MG tablet,delayed release (DR/EC) 81 mg PO QDAY Qty: 0 baclofen 10 MG tablet 20 mg PO QDAY Qty: 0 multivitamin [Multiple Vitamins] 1 EACH tablet 1 tab PO QDAY Qty: 0 doxazosin [Cardura] 8 MG tablet 8 mg PO QDAY Qty: 0 pravastatin 20 MG tablet 20 mg PO HS Qty: 0 finasteride 5 MG tablet 5 mg PO QDAY Qty: 0 cyanocobalamin (vitamin B-12) [Vitamin B-12] 500 MCG tablet 500 mcg PO QDAY Qty: 0 ascorbic acid (vitamin C) 500 MG tablet 1,000 mg PO BID Qty: 0 cholecalciferol (vitamin D3) [Vitamin D3] 2,000 UNIT tablet 1 tab PO QDAY Qty: 0 donepezil 10 mg tablet 10 mg PO DAILY venlafaxine 150 mg capsule,extended release 24hr 150 mg PO DAILY quetiapine 50 mg tablet 50 mg PO BID Qty: 180 3RF Referrals: Kristopher Altman MD [Primary Care Provider] - Stand Alone Forms: Patient Portal/API
[2022-11-02] MEDS: BACITRACIN OINT 0.9 GM PCKT 3 APPLIC TOP (19:11)
== END 2022-11-02 19:35 | disposition home or self-care (01) ==
PROVIDERS: Emergency Medicine; Emergency Provider Emergency Medicine; PCP Internal Medicine
DX: S00.81XA Abrasion of other part of head, initial encounter (principal); S40.812A Abrasion of left upper arm, initial encounter; W18.30XA Fall on same level, unspecified, initial encounter
CPT/HCPCS: 36415; 70450; 73030; 73060; 80053; 82550; 83690; 83735; 84484; 85025; 85610; 85730; 93005; 99284

== ENCOUNTER → 2024-02-08 12:56 | Outpatient (CLI) | payer MEDICARE, SELFPAY ==
[2024-02-08 13:14] LABS: Appearance Urine UA CLEAR; Bilirubin Urine UA NEGATIVE (NEGATIVE); Color Urine UA YELLOW; Glucose Urine UA NEGATIVE (Negative); Ketones Urine UA NEGATIVE (NEGATIVE); Leukocyte Esterase Urine UA NEGATIVE (NEGATIVE); Nitrite Urine UA NEGATIVE (Negative); Occult Blood Urine UA NEGATIVE (Negative); Protein Urine UA NEGATIVE (Negative); Specific Gravity Urine UA <=1.005 (1.000-1.035)
[2024-02-08 13:36] LABS: Bacteria Urine None Seen; Culture Indicated Urine Cult Not Indicated; RBC Urine None Seen (0-5/HPF); Squamous Epithelial Cell Urine None Seen (0-5/HPF); Urine Volume 10mL (spun); WBC Urine None Seen (0-5/HPF)
== END ==
PROVIDERS: PCP Internal Medicine; Referring Provider Internal Medicine; Visit Provider Internal Medicine
DX: R35.89 Other polyuria (principal)
CPT/HCPCS: 81001

== ENCOUNTER → 2024-02-24 12:32 | Outpatient (CLI) | payer MEDICARE, SELFPAY ==
[2024-02-24 13:47] LABS: Hematocrit 39.6 % (41-53); Hemoglobin 13.5 g/dL (13.5-17.5); Mean Corpuscular HGB Conc 34.1 % (30-36); Mean Corpuscular Hemoglobin 32.5 PG (26-34); Mean Corpuscular Volume 95.3 fL (80-100); Platelet Count 283 X10^3/uL (150-400); Red Blood Cell Count 4.16 X10^6/uL (4.5-5.9); Red Cell Distribution Width 14.1 % (11.6-14.8); White Blood Cell Count 6.1 X10^3/uL (4.5-11.0)
[2024-02-24 14:19] LABS: Alanine Aminotransferase 31 IU/L (<50); Albumin 4.1 g/dL (3.5-5.0); Albumin Globulin Ratio 1.6 (1.0-2.8); Alkaline Phosphatase 83 U/L (38-126); Aspartate Aminotransferase 27 IU/L (17-59); BUN Creatinine Ratio 11.7 (6-22); Bilirubin Total 0.5 mg/dL (0.2-1.3); Blood Urea Nitrogen 13 mg/dL (9-20); Calcium 8.8 mg/dL (8.4-10.2); Carbon Dioxide 27 mmol/L (22-32); Chloride 106 mmol/L (98-107); Cholesterol 208 mg/dL (140-199); Estimated Glomerular Filt Rate > 60 mL/min (>60); Globulin 2.6 g/dL (1.7-4.1); Glucose 108 mg/dL (80-110); HDL Cholesterol 74 mg/dL (40-60); HEMOLYSIS < 15 (0-50); LDL Cholesterol Calculated 98 mg/dL (<100); Potassium 4.4 mmol/L (3.4-5.1); Sodium 139 mmol/L (137-145); Total Protein 6.7 g/dL (6.3-8.2); Triglycerides 178 mg/dL (35-150)
[2024-02-24 15:07] LABS: Vitamin B12 558 pg/mL (239-931)
== END ==
PROVIDERS: PCP Internal Medicine; Referring Provider Internal Medicine; Visit Provider Internal Medicine
DX: E53.8 Deficiency of other specified B group vitamins (principal); E78.2 Mixed hyperlipidemia; F19.90 Other psychoactive substance use, unspecified, uncomplicated
CPT/HCPCS: 36415; 80053; 80061; 82607; 85027

== ENCOUNTER 2024-09-13 14:19 | Emergency (ER) | payer MEDICARE, SELFPAY ==
[2024-09-13 14:27] VITALS: BP 126/62; PULSE 75; RESP 20; TEMP 36.3; O2SAT 96; BMI 30.1
--- NOTE | 2024-09-13 16:13 | PC.NURSE ---
Pt c/o 01/16 pain in his right scapula/shoulder, ribs and back. Had mechanical GLF on wednesday. Pt refusing VS and IV/bloodwork.
--- NOTE | 2024-09-13 17:18 | PC.NURSE ---
Addendum entered by Anna Correa R.N. 09/13/24 18:45: Pt continues to refuse vital signs and changing out of soiled linens. Original Note: Pt becoming restless, confused and agitated. Used walker to ambulate to bathroom. Gait unsteady. While in bathroom, pt refused to sit on toilet and urinated on pants, slippers and floor. Pt refused to change out of soiled clothes when offered clean gown, brief and socks. Wet bed linen changed but pt also refusing to sit in bed and adamant to sit in chair. Pt also refused VS at this time.
--- NOTE | 2024-09-13 17:47 | DI.RAD.S_ITS ---
PROCEDURE: XR SHOULDER RT MIN 2V INDICATIONS: glf TECHNIQUE: 3 views of the shoulder were acquired. COMPARISON: [facility], CR, XR SHOULDER LT MIN 2V, 11/02/2022, 17:20. FINDINGS: Bones: Moderate glenohumeral joint degenerative change. AC joint hypertrophy with prominent downward going component. No acute fracture or dislocation. Soft tissues: No suspicious soft tissue calcifications. IMPRESSION: Degenerative change. No acute bony abnormality. Dictated by: Gamaliel Peña M.D. on 09/13/2024 at 18:35 Approved by: Gamaliel Peña M.D. on 09/13/2024 at 18:36
--- NOTE | 2024-09-13 17:48 | DI.CT.S_ITS ---
PROCEDURE: CT CHEST WO CON INDICATIONS: glf TECHNIQUE: Noncontrast 5 mm thick sections acquired from the pulmonary apices to the posterior costophrenic angles. 1 mm lung window, 5 mm thick coronal and sagittal and 7 mm axial MIP reformats were then acquired. For radiation dose reduction, the following was used: automated exposure control, adjustment of mA and/or kV according to patient size. COMPARISON: None. FINDINGS: Image quality: Diagnostic. Lower Neck: No enlarged lymph nodes. Thyroid: No thyroid nodules which require sonographic follow up, per consensus guidelines. Axillae: No enlarged lymph nodes. Chest Wall: Unremarkable. Bones: Diffuse osteopenia, ankylosing spondylitis.. Lungs and Pleura: No pneumothorax or pleural effusions. 3 mm fissural nodule, minor fissure of right lung, image 195 of series 3. 3 mm subpleural nodule, left lower lobe, image 233 of series 3. Heart: Heart size is normal. No pericardial effusion. Thoracic Vessels: The aorta and pulmonary arteries demonstrate normal size. Mediastinum and Maddy: No enlarged lymph nodes. Esophagus: No wall thickening. No hiatal hernia. Upper Abdomen: Visualized upper abdomen solid organs and bowel loops appear normal. IMPRESSION: 1. Diffuse osteopenia. 2. Ankylosing spondylitis. 3. No thoracic compression fracture or displaced rib fracture identified. 4. Scattered tiny pulmonary nodules. Dictated by: Gamaliel Peña M.D. on 09/13/2024 at 18:31 Approved by: Gamaliel Peña M.D. on 09/13/2024 at 18:35
--- NOTE | 2024-09-13 18:58 | ED_ITS ---
HPI - Fall General Chief Complaint: Fall Stated Complaint: GLF on 2 Time Seen by Provider: 09/13/24 18:58 Source: patient and EMS Mode of arrival: EMS History of Present Illness HPI Narrative: 84-year-old male with past medical history of dementia hyperlipidemia urinary incontinence comes into the ED via EMS from a mechanical ground level fall, states that he was in his chair/recliner and slipped down normally walks with a walker, family at bedside states patient is at his baseline, he is complaining of right scapular shoulder pain rib pain and low back pain, however patient is able to stand bear weight ambulate to his baseline here in the emergency department, patient not on any blood thinners, not complaining of any other symptoms at this time Related Data Home Medications Medication Instructions Recorded Confirmed ascorbic acid (vitamin C) 500 mg 1,000 mg PO BID ##0 12/01/16 08/10/24 tablet aspirin 81 mg tablet,delayed 81 mg PO QDAY ##0 12/01/16 08/10/24 release cholecalciferol (vitamin D3) 50 1 tab PO QDAY ##0 12/01/16 08/10/24 mcg (2,000 unit) tablet (Vitamin D3) cyanocobalamin (vitamin B-12) 500 500 mcg PO QDAY ##0 12/01/16 08/10/24 mcg tablet (Vitamin B-12) multivitamin (Multiple Vitamins 1 tab PO QDAY ##0 12/01/16 08/10/24 tablet) Previous Rx's Medication Instructions Recorded food supplemt, lactose-reduced 1 ea PO TID #5,688 mL 12/14/23 0.07 gram-1.5 kcal/mL oral liquid (Ensure Plus) cefuroxime axetil 500 mg tablet 500 mg PO BID #20 tabs 02/21/24 baclofen 10 mg tablet 20 mg (2 x 10 mg) PO QDAY #180 tabs 05/23/24 donepezil 10 mg tablet 10 mg PO DAILY #90 tabs 05/23/24 doxazosin 8 mg tablet (Cardura) 8 mg PO QDAY #90 tabs 05/23/24 finasteride 5 mg tablet 5 mg PO QDAY #90 tabs 05/23/24 pravastatin 20 mg tablet 20 mg PO BEDTIME #90 tabs 05/23/24 quetiapine 100 mg tablet 100 mg PO BID #180 tabs 05/23/24 venlafaxine 150 mg 150 mg PO DAILY #90 caps 05/23/24 capsule,extended release 24 hr oxybutynin chloride 10 mg 10 mg PO DAILY #90 tabs 08/10/24 tablet,extended release 24 hr Allergies Allergy/AdvReac Type Severity Reaction Status Date / Time No Known Drug Allergies Allergy Verified 08/10/24 15:05 Review of Systems Review of Systems Narrative: General: Denies fever, chills, weight loss HEENT: Denies headache, eye drainage, eye irritation, head trauma, sore throat, voice change Cardiovascular: Denies any chest pain, palpitations, shortness of breath, tachycardia Respiratory: Denies any shortness of breath, cough, wheeze, stridor GI/: Denies any abdominal pain, nausea, vomiting, diarrhea, bright red blood per rectum, melanotic stools, urinary frequency, urinary retention, dysuria, hematuria MSK: Positive right shoulder, right rib, right back pain Skin: Denies any rashes, lesions, discoloration Neuro: Denies any headache, lightheadedness, dizziness, fainting, weakness Psych: Denies SI/HI Patient History Medical History (Updated 09/13/24 @ 19:01 by William Dozier DO) Urinary incontinence Laceration of left elbow Do not resuscitate Alcohol use disorder Overweight Gait instability Recurrent falls B12 deficiency BPH w urinary obs/LUTS Dementia Chronic low back pain Depression, major, recurrent Mixed hyperlipidemia Social History details: 2018 (Maria Elena), son Humphrey, retired net developer software engineer c. Smoking Status: Former smoker Smoking Status: Former smoker alcohol intake frequency: 3 or more drinks per day Alcohol type: beer Exam Narrative Exam Narrative: General: Cooperative, comfortable, well-developed, not in acute distress HEENT: Normocephalic, atraumatic, PERRLA, normal sclera, eyelids normal, Neck: Active full range of motion, atraumatic Chest: Normal to inspection, negative crepitus, no overlying erythema ecchymosis Respiratory: Normal respiratory effort, not in acute respiratory distress, clear to auscultation bilaterally negative cough, wheeze, tachypnea, rhonchi, rales Cardiology: Regular rate rhythm negative gallop, murmur, rubs GI/: Normal to inspection, soft, nonrigid, no tenderness to palpation, exam deferred MSK: Full range of active range of motion of all 4 extremities, atraumatic, no tenderness to palpation of any bony prominences, patient was able to stand bear weight walk with his walker which is his baseline here in the emergency department Skin: No rashes lesions noted Neuro: Patient history dementia at baseline, Alert awake oriented to self and place, moves all 4 extremities spontaneously, cranial nerves intact, able to answer all questions appropriately follows commands appropriately Psych: Cooperative, negative suicidal or homicidal ideations Initial Vital Signs Initial Vital Signs: Vital Signs Temperature 97.3 F L 09/13/24 14:27 Pulse Rate 75 09/13/24 14:27 Respiratory Rate 20 09/13/24 14:27 Blood Pressure 126/62 09/13/24 14:27 Pulse Oximetry 96 09/13/24 14:27 Oxygen Delivery Method Room Air 09/13/24 14:27 Course Orders Ordered: ED Orders 09/13/24 17:47 XR shoulder RT min 2V Stat 09/13/24 17:48 CT chest wo con Stat Vital Signs Vital signs: Vital Signs - 8 hr 09/13/24 14:27 Temperature 97.3 F L Pulse Rate 75 Respiratory Rate 20 Blood Pressure 126/62 Pulse Oximetry 96 Oxygen Delivery Method Room Air MDM - Fall Differential Diagnosis Differential diagnosis: Likely other (Contusion, fracture,) Imaging Data CT scan - chest: Radiologist's Impression: [place] [address] CT Scan Report Signed Patient: Veronica Pepe MR#: [id number] : 1940 Acct:[id number] Age/Sex: 84 / M Date of Service: 09/13/24 Loc: ED Accession Number: [id number] Procedure: CT chest wo con Ordering Provider: Theo Ledezma MD PROCEDURE: CT CHEST WO CON INDICATIONS: glf TECHNIQUE: Noncontrast 5 mm thick sections acquired from the pulmonary apices to the posterior costophrenic angles. 1 mm lung window, 5 mm thick coronal and sagittal and 7 mm axial MIP reformats were then acquired. For radiation dose reduction, the following was used: automated exposure control, adjustment of mA and/or kV according to patient size. COMPARISON: None. FINDINGS: Image quality: Diagnostic. Lower Neck: No enlarged lymph nodes. Thyroid: No thyroid nodules which require sonographic follow up, per consensus guidelines. Axillae: No enlarged lymph nodes. Chest Wall: Unremarkable. Bones: Diffuse osteopenia, ankylosing spondylitis.. Lungs and Pleura: No pneumothorax or pleural effusions. 3 mm fissural nodule, minor fissure of right lung, image 195 of series 3. 3 mm subpleural nodule, left lower lobe, image 233 of series 3. Heart: Heart size is normal. No pericardial effusion. Thoracic Vessels: The aorta and pulmonary arteries demonstrate normal size. Mediastinum and Maddy: No enlarged lymph nodes. Esophagus: No wall thickening. No hiatal hernia. Upper Abdomen: Visualized upper abdomen solid organs and bowel loops appear normal. IMPRESSION: 1. Diffuse osteopenia. 2. Ankylosing spondylitis. 3. No thoracic compression fracture or displaced rib fracture identified. 4. Scattered tiny pulmonary nodules. Extremity x-ray #1: Radiologist's Impression: [place] [address] XRay Report Signed Patient: Veronica Pepe MR#: [id number] : 1940 Acct:[id number] Age/Sex: 84 / M Date of Service: 09/13/24 Loc: ED Accession Number: [id number] Procedure: XR shoulder RT min 2V Ordering Provider: Theo Ledezma MD PROCEDURE: XR SHOULDER RT MIN 2V INDICATIONS: glf TECHNIQUE: 3 views of the shoulder were acquired. COMPARISON: [facility], CR, XR SHOULDER LT MIN 2V, 11/02/2022, 17:20. FINDINGS: Bones: Moderate glenohumeral joint degenerative change. AC joint hypertrophy with prominent downward going component. No acute fracture or dislocation. Soft tissues: No suspicious soft tissue calcifications. IMPRESSION: Degenerative change. No acute bony abnormality. MDM Narrative Medical decision making narrative: 84-year-old male history of dementia at baseline hyperlipidemia comes into the ED via EMS for evaluation of ground level fall, patient states that he was seated at his recliner was trying to get up slid down fell on his right side, denies head strike not on any blood thinners, patient had x-ray CT of chest and shoulder did not show any acute findings, on exam no tenderness to palpation of any bony prominences, family at bedside states that he is at his baseline, patient was able to stand bear weight walk with his walker here in the emergency [place] which is his baseline, patient was given strict return precautions verbalized understanding along with patient's family member at bedside agree with being discharged home with outpatient follow up Discharge Plan Departure Patient Disposition: Home Clinical Impression: Ground-level fall, Contusion Activity Restrictions/Additional Instructions: Please read the discharge instructions sheet carefully and bring all papers to all doctor follow-up visits, as it may contain information that your doctor may want to see. Disease processes change and evolve, if your symptoms worsen or if you develop any new symptoms that are concerning to you please return for evaluation. Your evaluation today does not show any evidence of any life- threatening/serious illnesses requiring admission to the hospital or surgery. Please follow-up with your doctor for re-evaluation in approximately 1 day. Seek immediate medical attention for any worrisome symptoms. *If you do not have a primary care provider please contact the [facility] Resource line at [phone]. They will ask some questions about your medical history and help get you set up with a doctor in the community. Prescriptions: No Action aspirin 81 MG tablet,delayed release (DR/EC) 81 mg PO QDAY Qty: 0 multivitamin [Multiple Vitamins] 1 EACH tablet 1 tab PO QDAY Qty: 0 cyanocobalamin (vitamin B-12) [Vitamin B-12] 500 MCG tablet 500 mcg PO QDAY Qty: 0 ascorbic acid (vitamin C) 500 MG tablet 1,000 mg PO BID Qty: 0 cholecalciferol (vitamin D3) [Vitamin D3] 2,000 UNIT tablet 1 tab PO QDAY Qty: 0 Ensure Plus 0.07 gram- 1.5 kcal/mL liquid 1 ea PO TID Qty: 5688 12RF quetiapine 100 mg tablet 100 mg PO BID Qty: 180 1RF venlafaxine 150 mg capsule,extended release 24hr 150 mg PO DAILY Qty: 90 1RF Rx Instructions: Short supply pravastatin 20 mg tablet 20 mg PO BEDTIME Qty: 90 3RF Rx Instructions: Short supply finasteride 5 mg tablet 5 mg PO QDAY Qty: 90 3RF baclofen 10 mg tablet 20 mg PO QDAY Qty: 180 3RF doxazosin [Cardura] 8 mg tablet 8 mg PO QDAY Qty: 90 3RF donepezil 10 mg tablet 10 mg PO DAILY Qty: 90 3RF cefuroxime axetil 500 mg tablet 500 mg PO BID Qty: 20 1RF oxybutynin chloride 10 mg tablet extended release 24hr 10 mg PO DAILY Qty: 90 1RF Referrals: Kristopher Altman MD [Primary Care Provider] - Stand Alone Forms: Patient Portal/API/Survey
== END 2024-09-13 19:39 | disposition home or self-care (01) ==
PROVIDERS: Emergency Provider Student in an Organized Health Care Education/Training Program; PCP Internal Medicine
DX: S40.011A Contusion of right shoulder, initial encounter (principal); R07.89 Other chest pain; M54.50 Low back pain, unspecified; W07.XXXA Fall from chair, initial encounter
CPT/HCPCS: 71250; 73030; 99281; 99284

== ENCOUNTER → 2024-11-23 16:27 | Outpatient (CLI) | payer OTHER, SELFPAY ==
--- NOTE | 2024-11-23 16:32 | DI.RAD.S_ITS ---
PROCEDURE: XR SACRUM COCCYX MIN 2V INDICATIONS: ARTHRITIS TECHNIQUE: 3 views of the sacrum and coccyx acquired. COMPARISON: None. FINDINGS: Bones: The coccyx is very poorly visualized on the lateral view and may be eroded. The L5 transverse processes are enlarged and pseudoarticulate with the ilium. SI and hip joints: Moderate left SI degeneration noted. Right SI joint is normal. Mild degeneration both hips noted with large lateral marginal osteophytes. Severe L3-4 L4-5 and L5-S1 degenerative disc disease. Soft tissues: No soft tissue swelling, calcification or mass. IMPRESSION: Possible coccyx erosion on the lateral view. It is very poorly visualized. Consider pelvic CT Degeneration Dictated by: León Kraus M.D. on 11/24/2024 at 12:43 Approved by: León Kraus M.D. on 11/24/2024 at 12:46
--- NOTE | 2024-11-23 16:33 | DI.RAD.S_ITS ---
PROCEDURE: XR THORACIC SPINE 2V INDICATIONS: ARTHRITIS TECHNIQUE: 3 views of the thoracic spine were acquired. COMPARISON: None. FINDINGS: Thoracic spine curvature and alignment: Normal. Bones: There are no osseous abnormalities. Disc spaces: Moderate degenerative disc disease seen throughout the thoracic spine there also syndesmophytes bridging all thoracic vertebral bodies and partial ankylosis of the facet joints. In addition, supraspinatus calcification noted Soft tissues: No soft tissue swelling, calcification or mass. IMPRESSION: Chronic ankylosing spondylitis. If previously unknown , please correlate with HLA B27 or other tests Moderate degenerative disc disease throughout the thoracic spine Dictated by: León Kraus M.D. on 11/24/2024 at 12:46 Approved by: León Kraus M.D. on 11/24/2024 at 12:47
--- NOTE | 2024-11-23 16:33 | DI.RAD.S_ITS ---
PROCEDURE: XR LUMBAR SPINE 2-3V INDICATIONS: ARTHRITIS TECHNIQUE: Two views of the lumbar spine were acquired. COMPARISON: [facility], CR, XR LUMBAR SPINE 2-3V, 08/12/2022, 13:27. FINDINGS: Lumbar spine curvature and alignment: Normal. Bones: There are no osseous abnormalities. Disc spaces: Moderate degenerative disc disease L2-3 through L5-S1 appreciated. Syndesmophytes bridge all of the lumbar vertebral bodies and there is partial ankylosis of the facet joints. Soft tissues: No soft tissue swelling, calcification or mass. IMPRESSION: Chronic ankylosing spondylitis. Degeneration Dictated by: León Kraus M.D. on 11/24/2024 at 12:47 Approved by: León Kraus M.D. on 11/24/2024 at 12:48
== END ==
PROVIDERS: PCP Internal Medicine; Referring Provider Internal Medicine; Visit Provider Physician Assistant
DX: M16.0 Bilateral primary osteoarthritis of hip (principal); M45.6 Ankylosing spondylitis lumbar region; M45.4 Ankylosing spondylitis of thoracic region; M51.34 Other intervertebral disc degeneration, thoracic region; M51.369 Other intervertebral disc degeneration, lumbar region without mention of lumbar back pain or lower extremity pain; M51.379 Other intervertebral disc degeneration, lumbosacral region without mention of lumbar back pain or lower extremity pain
CPT/HCPCS: 72070; 72100; 72220

== ENCOUNTER → 2025-02-21 15:15 | Outpatient (CLI) | payer MEDICARE, SELFPAY ==
[2025-02-21 17:40] LABS: Hematocrit 40.4 % (41-53); Hemoglobin 13.5 g/dL (13.5-17.5); Mean Corpuscular HGB Conc 33.4 % (30-36); Mean Corpuscular Hemoglobin 32.4 PG (26-34); Mean Corpuscular Volume 97.0 fL (80-100); Platelet Count 243 X10^3/uL (150-400)
[2025-02-21 17:59] LABS: Alanine Aminotransferase 27 IU/L (<50); Albumin 4.3 g/dL (3.5-5.0); Albumin Globulin Ratio 1.4 (1.0-2.8); Alkaline Phosphatase 86 U/L (38-126); Blood Urea Nitrogen 11 mg/dL (9-20); Calcium 9.2 mg/dL (8.4-10.2); Carbon Dioxide 26 mmol/L (22-32); Chloride 103 mmol/L (98-107); Cholesterol 198 mg/dL (140-199); Estimated Glomerular Filt Rate > 60 mL/min (>60); Globulin 3.1 g/dL (1.7-4.1); Glucose 99 mg/dL (70-99); HDL Cholesterol 70 mg/dL (40-60); HEMOLYSIS < 15 (0-50); Potassium 4.0 mmol/L (3.4-5.1); Sodium 138 mmol/L (137-145); Total Protein 7.4 g/dL (6.3-8.2); Triglycerides 168 mg/dL (35-150)
[2025-02-21 18:33] LABS: TSH w/ Reflex to FT4 2.86 uIU/mL (0.47-4.68)
[2025-02-21 18:52] LABS: Vitamin B12 445 pg/mL (239-931)
== END ==
PROVIDERS: PCP Internal Medicine; Referring Provider Internal Medicine; Visit Provider Internal Medicine
DX: E53.8 Deficiency of other specified B group vitamins (principal); E78.2 Mixed hyperlipidemia; F19.90 Other psychoactive substance use, unspecified, uncomplicated
CPT/HCPCS: 36415; 80053; 80061; 82607; 84443; 85027